=== PATIENT | male | born 1950 | race Caucasian/White ===

== ENCOUNTER → 2021-12-23 01:12 | Outpatient (CLI) | payer MEDICARE, SELFPAY ==
--- NOTE | 2021-12-23 10:00 | DI.CTLCSR_ITS ---
Exam(s) CT CHEST LUNG CANCER SCREEN EXAM: CT CHEST LUNG CANCER SCREEN CLINICAL HISTORY: NICOTINE DEPENDENCE, F17.210, LUNG CA SCREENING. TECHNIQUE: Imaging Protocol: Low Dose Technique CONTRAST MATERIAL: None COMPARISON: CR CHEST 2 VIEWS PA,LAT from 01/07/2013. There are no more recent chest imaging stud ies in our PACS. FINDINGS: CHEST: LUNGS: There are no ominous pulmonary nodules. Mild benign-appearing pleural base markings posterior aspect of right upper lobe are noted. Also benign-appearing increased markings lower down the medial aspect right lower lobe extending down into posterior basal segment. MEDIASTINUM: There is no obvious hilar nor mediastinal adenopathy. CARDIAC: Heart size is normal. There is no pericardial effusion.Moderate coronary calcification note d in the LAD and circumflex arteries. Caliber thoracic aorta is within normal OTHER: No adrenal masses no splenomegaly OSSEOUS: No significant osseous lesions.. IMPRESSION: 1. Benign appearing lung findings. No significant pulmonary nodules. 2. No pleural effusions nor intrathoracic adenopathy. 3. Lung RADS Cat 1 - Negative: No nodules and definitely benign nodules Lung-RADS 1.0 CATEGORIES: Category 0 - Prior chest CT exam(s) being located for comparison. Category 1 - Annual screening in 12 months. No nodules or definitely benign nodules. Category 2 - Annual screening in 12 months. Benign appearance. Nodules with low likelihood of becomin g active cancer. Category 3 - 6-month follow-up. Probably benign. Short-term follow-up suggested. Nodules with low lik elihood of becoming active cancer. Category 4A - 3-month follow-up and CT/PET if >8 mm in size. Suspicious finding. Findings which requi re additional testing. Category 4B - Findings which require additional testing and tissue sampling. Category 4X - Category 3 or 4 nodules with additional features or imaging findings that increases the suspicion of malignancy. Modifier S- Potentially clinically significant findings (non lung cancer) RADIATION DOSE DELIVERED: 96.59mGy.cm Total DLP 2.21mGy CTDIvol DATA REPOSITORY: All CT scans at this facility are submitted to the National Radiology Data Registry (NRDR) Dose Index Registry (DIR) with the [employer] (ACR). RADIATION OPTIMIZATION: All CT scans at this facility use at least one of these dose optimization te chniques: automated exposure control; mA and/or kV adjustment per patient size (includes targeted exa ms where dose is matched to clinical indication); or iterative reconstruction.
== END ==
PROVIDERS: PCP Nurse Practitioner; Visit Provider Nurse Practitioner
DX: F17.210 Nicotine dependence, cigarettes, uncomplicated (principal); Z12.2 Encounter for screening for malignant neoplasm of respiratory organs
CPT/HCPCS: 71271

== ENCOUNTER 2023-03-22 12:28 | Outpatient (CLI) | payer MEDICARE, SELFPAY ==
--- NOTE | 2023-03-22 12:28 | RT.EKG_ITS ---
APPROVED REPORT Exam: Resting ECG Reason for Exam: cardiac evaluation Patient Location: O HR:83 bpm ECG Measurements Heart Rate [address] [id number] P [id number] QRSd 85 QRS -13 QT 376 T 102 QTc 442 Conclusion Atrial fibrillation...V-rate 61- 97, irreg A-activity Poor R wave progression Low voltage
== END 2023-03-22 12:29 | disposition home or self-care (01) ==
LOC: DI.CARD 12:29
PROVIDERS: PCP Nurse Practitioner; Visit Provider Internal Medicine Cardiovascular Disease
DX: E78.5 Hyperlipidemia, unspecified (principal); I10 Essential (primary) hypertension; I48.91 Unspecified atrial fibrillation; I51.7 Cardiomegaly; Z13.6 Encounter for screening for cardiovascular disorders
CPT/HCPCS: 93010

== ENCOUNTER → 2023-03-22 12:55 | Outpatient (BNVA) | payer MEDICARE, SELFPAY | PROVIDERS: PCP Nurse Practitioner; Referring Provider Nurse Practitioner; Visit Provider Internal Medicine Cardiovascular Disease | DX: I48.91 Unspecified atrial fibrillation (principal); R06.02 Shortness of breath; Z91.148 Patient's other noncompliance with medication regimen for other reason; I12.9 Hypertensive chronic kidney disease with stage 1 through stage 4 chronic kidney disease, or unspecified chronic kidney disease; N18.9 Chronic kidney disease, unspecified | CPT/HCPCS: 93005; 99203 ==

== ENCOUNTER → 2023-05-18 01:41 | Outpatient (CLI) | payer MEDICARE, SELFPAY ==
--- NOTE | 2023-05-18 15:36 | DI.US_ITS ---
APPROVED REPORT EXAM: Comprehensive 2D, Doppler, and color-flow Echocardiogram Patient Location: Out-Patient Mechanical Test Engineer: Carole Torres RDCS (AE) Indications: LV function, A Fib, Pulmonary Embolism Other Information Study Quality: Adequate. Technically limited study due to body habitus. Conclusion Mildly dilated left ventricle. Moderately reduced left ventricular systolic function. EF is 35 to 4 0% with global hypokinesis Normal right ventricular size and systolic function Both atria are moderately dilated Aortic valve is sclerotic and trileaflet with trace regurgitation Normal mitral valve with mild to moderate regurgitation Normal tricuspid valve, mild regurgitation. Estimated right ventricular systolic pressure is 52 mmHg Small pericardial effusion Wall motion Left Ventricle Left ventricle is mildly dilated. Left ventricular systolic function is moderately decreased. There i s normal left ventricular wall thickness. There is global hypokinesis of the left ventricle. There is no ventricular septal defect visualized. LVEF is 35-40%. Right Ventricle The right ventricle is normal size. The right ventricular systolic function is normal. Atria Left atrium is moderately dilated. Right atrium is moderately dilated. The interatrial septum is int act with no evidence for an atrial septal defect. Aortic Valve The aortic valve is sclerotic Aortic valve is trileaflet. Aortic valve is trileaflet. There is no ao rtic valvular stenosis. Trace aortic regurgitation. Mitral Valve The mitral valve is normal in structure. No evidence of mitral valve stenosis. Mild to moderate genna l regurgitation. Tricuspid Valve The tricuspid valve is normal in structure. There is no tricuspid valve stenosis. Mild tricuspid regu rgitation. The RVSP is 52.0_ mmHg. Pulmonic Valve Pulmonic valve is not well visualized. There is no pulmonic valvular stenosis. There is no pulmonic v alvular regurgitation. Great Vessels The aortic root is normal in size. Ascending aorta is not well visualized. The IVC collapses <50% wit h inspiration. Pericardium Small circumferential pericardial effusion. 2D Dimensions IVSD d PLAX 0.91 cm M: 0.6-1.2 LVPW d PLAX 0.88 cm M: 0.6 - 1.2 LVID d PLAX 6.05 cm M: 4.2 - 5.8 LVDs 4.95 cm M: 2.5 - 4.0 Ao Root d 3.21 cm M: 3.1 - 3.7 RA Area A4C 23.02 cm2 LV EF Teichholz 37.0 % FS 18.15 % M-Mode TAPSE 1.83 cm (M/F) >1.7 LV Diastology MV E' medial 0.059 (>0.07 m/s) MV E Vmax 0.96 (0.4-1.3 m/s) LV E/e MED 16.23 (<14) MV E' lateral 0.077 (>0.1 m/s) LV E/e LAT 12.39 (<14) MV E/E' medial 16.23 MV E/E' lateral 12.39 MV (E/E' average) 14.05 Aortic Valve LVOT Vmax 0.96 m/s AoV Area Vmax 2.20 cm2 LVOT Peak Grad 3.7 mmHg LVOT Mean Grad 1.7 mmHg LVOT Diam s 2.10 cm AoV Vmax 1.52 m/s Velocity Ratio 0.63 AoV Peak Grad 9.2 mmHg LVOT SV 67.31 mL AoV Mean Grad 4.9 mmHg AoV Area VTI 2.20 cm2 Mitral Valve MV DT 171 (160-240 msec) MV Vmax TIPS 0.90 m/s MV Mean Grad 1.4 (<2mmHg) MV VTI 0.259 m Pulmonary Valve PV Mean Grad 1.2 mmHg RVOT Peak Gr. 1.92 mmHg RVOT Mean Gr. 1.00 mmHg RVOT VTI 0.132 m RVOT Vmax 0.69 m/s Tricuspid Valve TR Peak Grad 45.0 mmHg TR Vmax 3.36 m/s RA Pressure 8.00 mmHg RVSP (TR) 52.0 mmHg
== END ==
PROVIDERS: PCP Nurse Practitioner; Visit Provider Internal Medicine Cardiovascular Disease
DX: I26.99 Other pulmonary embolism without acute cor pulmonale (principal); I48.91 Unspecified atrial fibrillation
CPT/HCPCS: 93306

== ENCOUNTER → 2023-05-31 10:24 | Outpatient (BNVA) | payer MEDICARE, SELFPAY | PROVIDERS: PCP Nurse Practitioner; Referring Provider Nurse Practitioner; Visit Provider Internal Medicine Cardiovascular Disease | DX: I25.10 Atherosclerotic heart disease of native coronary artery without angina pectoris (principal); I48.91 Unspecified atrial fibrillation; Z79.01 Long term (current) use of anticoagulants; I11.0 Hypertensive heart disease with heart failure; I50.20 Unspecified systolic (congestive) heart failure | CPT/HCPCS: 99214 ==

== ENCOUNTER → 2023-06-09 02:09 | Outpatient (CLI) | payer MEDICARE, SELFPAY ==
--- NOTE | 2023-06-09 07:15 | DI.NM_ITS ---
APPROVED REPORT Exam: Pharmacologic Patient Location: Out-Patient Room/Bed: Stress Nurse: Magalys Roach RN Ordering Provider:ANILA OCAMPO, Contact Number: [phone] BMI: 36.01 Baseline Rhythm: Atrial Fibrillation Indications: CAD a fib, HTN, SOB Medical History Medical History: HFrEF, CAD, BPH, prediabetes, CKD, HLD, a fib, obesity, HTN, JOHN, cigarette nicotine dependence, DVT, PE, SOB Cardiac Medications: Sildenafil, rosuvastatin, pantoprazole, metoprolol succinate, losartan. levalbut alex, furosemide, doxazosin, diltiazem , aspirin, apixaban Allergies: Sulfa, bactrim, ZULLY inhibitors, Cardiac Risk Factors: Family hx, HTN, HLD, Diabetes, aspirin Previous Cardiac Procedures: None Pretest Chest Pain Characteristics: None Exercise History: Sedentary Physical Disabilities: Generalized weakness Lung Sounds: Clear to auscultation Heart Sounds: Irregular Stress Test Details Test: Pharmacologic stress testing performed using 0.4 mg of regadenoson per 5 mL given IV over 10 s econds. Reason for pharmacologic stress test: physical limitation. Nuclear Acquisition: Rest Tc-99m/Stress Tc-99m 1 day Rest Isotope: Tc-99m Sestamibi. Dose: 12.0 Date: 06/09/2023 Injection Time: 0840 Stress Isotope: Tc-99m Sestamibi. Dose: 35.1 Date: 06/09/2023 Injection Time: 1005 HR Resting HR Supine: 70 bpm Max Heart Rate (APMHR): 147.115559 bpm Target HR (85% APMHR): 124.479251 bpm Max HR Achieved: 95 bpm % of APMHR: 64.63 Recovery HR: 82 bpm BP Resting BP Supine: 112/62 mmHg Max BP: 118/62 mmHg Recovery BP: 104/68 mmHg ECG Resting ECG: Atrial Fibrillation Ectopy: None Stress ECG: Atrial Fibrillation ST Change: Nondiagnostic low heart rate Arrhythmia: None Recovery ECG: Atrial Fibrillation Recovery ST Change: Nondiagnostic low heart rate Recovery Arrhythmia: None Clinical Stress Symptoms: Moderate SOB Angina Score: None Rate Pressure Product: [id number] Stress ECG Conclusion 1. Resting electrocardiogram showed atrial fibrillation, poor R wave progression 2. Patient underwent testing using pharmacologic stress with regadenoson 3. Peak heart rate achieved was 65% of predicted for age 4. Electrocardiographic portion of the test was nondiagnostic 5. See MPI report Stress Test Summary STAGE HR BP SpO2 Symptoms NOTES Supine 70 112/62 1 min post Lexiscan injection 77 110/70 99 Mod SOB 3 min post Lexiscan injection 71 118/62 100 SOB resolving 6 min post Lexiscan injection 82 104/68 SOB resolved. MPI Conclusion Myocardial perfusion is normal. There is no evidence of ischemia or prior infarction Left ventricle appears dilated. There is severe global hypokinesis Radiologist Interpretation Radiologist agrees with Textile Screen Maker's Interpretation. Radiologist Interpretation by: Jose Boyd MD Interpretation Date/Time: 06/09/2023 18:40:25
[2023-06-09] MEDS: Regadenoson 0.4 MG/5 ML SYR IVP (10:29)
== END ==
PROVIDERS: PCP Nurse Practitioner; Visit Provider Internal Medicine Cardiovascular Disease
DX: I10 Essential (primary) hypertension (principal); I25.10 Atherosclerotic heart disease of native coronary artery without angina pectoris; I48.91 Unspecified atrial fibrillation; R06.02 Shortness of breath
CPT/HCPCS: 78452; 93016; 93018; 93017; J2785

== ENCOUNTER → 2023-06-14 10:12 | Outpatient (BNVA) | payer MEDICARE, SELFPAY | PROVIDERS: PCP Nurse Practitioner; Referring Provider Nurse Practitioner; Visit Provider Internal Medicine Cardiovascular Disease | DX: I50.20 Unspecified systolic (congestive) heart failure (principal); I25.10 Atherosclerotic heart disease of native coronary artery without angina pectoris; I48.91 Unspecified atrial fibrillation; Z79.01 Long term (current) use of anticoagulants; I13.0 Hypertensive heart and chronic kidney disease with heart failure and stage 1 through stage 4 chronic kidney disease, or unspecified chronic kidney disease; N18.9 Chronic kidney disease, unspecified | CPT/HCPCS: 99214 ==

== ENCOUNTER → 2023-06-28 10:12 | Outpatient (BNVA) | payer MEDICARE, SELFPAY | PROVIDERS: PCP Nurse Practitioner; Visit Provider Internal Medicine Cardiovascular Disease | DX: I50.20 Unspecified systolic (congestive) heart failure (principal); I25.10 Atherosclerotic heart disease of native coronary artery without angina pectoris; I48.91 Unspecified atrial fibrillation; Z79.01 Long term (current) use of anticoagulants; I13.0 Hypertensive heart and chronic kidney disease with heart failure and stage 1 through stage 4 chronic kidney disease, or unspecified chronic kidney disease; N18.9 Chronic kidney disease, unspecified | CPT/HCPCS: 99214 ==

== ENCOUNTER → 2023-08-30 10:27 | Outpatient (BNVA) | payer MEDICARE, SELFPAY | PROVIDERS: PCP Nurse Practitioner; Referring Provider Nurse Practitioner; Visit Provider Internal Medicine Cardiovascular Disease | DX: I48.0 Paroxysmal atrial fibrillation (principal); Z79.01 Long term (current) use of anticoagulants; I13.0 Hypertensive heart and chronic kidney disease with heart failure and stage 1 through stage 4 chronic kidney disease, or unspecified chronic kidney disease; N18.9 Chronic kidney disease, unspecified; I50.20 Unspecified systolic (congestive) heart failure; I25.10 Atherosclerotic heart disease of native coronary artery without angina pectoris | CPT/HCPCS: 99214 ==

== ENCOUNTER 2024-05-14 02:39 | Outpatient (CLI) | payer MEDICARE, SELFPAY ==
--- NOTE | 2024-05-14 | DI.CTLCSR_ITS ---
Exam(s) CT CHEST LUNG CANCER SCREEN EXAM: CT CHEST LUNG CANCER SCREEN CLINICAL HISTORY: CIGARETTE DEPENDENCE W/O COMPLICATION, F17.210 TECHNIQUE: Imaging Protocol: Axial computed tomography images with coronal and sagittal reformatted images were created and reviewed COMPARISON: CT CT CHEST LUNG CANCER SCREEN from 12/23/2021 FINDINGS: Tracheobronchial tree: Patent where visualized. No bronchiectasis. Pulmonary parenchyma: There is an infiltrate, atelectasis or scarring in the medial aspect of the rig ht lower lobe. No architectural distortion. Lung Nodules: None. Mediastinum and Sharon: No dominant adenopathy or fluid collection. The esophagus is unremarkable. Thyroid gland: Unremarkable. Lymph nodes: Unremarkable. Pleura: No effusion or pneumothorax. Heart: The heart is not dilated. Coronary artery calcifications are present. No pericardial effusion . Aorta: Thoracic aorta non-dilated.Atherosclerotic calcification is present. Upper abdomen: No acute abnormality. Soft Tissues: Mild gynecomastia. Bones: Within normal limits. IMPRESSION: 1. No pulmonary nodules. 2. Infiltrate, atelectasis or scarring in the medial aspect of the right lower lobe. Follow-up as cl inically appropriate. Lung RADS Cat 1 - Negative: No nodules and definitely benign nodules Lung-RADS 1.0 CATEGORIES: Category 0 - Prior chest CT exam(s) being located for comparison. Category 1 - Annual screening in 12 months. No nodules or definitely benign nodules. Category 2 - Annual screening in 12 months. Benign appearance. Nodules with low likelihood of becomin g active cancer. Category 3 - 6-month follow-up. Probably benign. Short-term follow-up suggested. Nodules with low lik elihood of becoming active cancer. Category 4A - 3-month follow-up and CT/PET if >8 mm in size. Suspicious finding. Findings which requi re additional testing. Category 4B - Findings which require additional testing and tissue sampling. Suspicious finding. Category 4X - Category 3 or 4 nodules with additional features or imaging findings that increases the suspicion of malignancy. Modifier S- Potentially clinically significant finding. (Non lung cancer) RADIATION DOSE DELIVERED: Total DLP Total DLP DATA REPOSITORY: All CT scans at this facility are submitted to the National Radiology Data Registry (NRDR) Dose Index Registry (DIR) with the [employer] (ACR). RADIATION OPTIMIZATION: All CT scans at this facility use at least one of these dose optimization te chniques: automated exposure control; mA and/or kV adjustment per patient size (includes targeted exa ms where dose is matched to clinical indication); or iterative reconstruction.
== END 2024-05-14 02:59 ==
LOC: DI 02:40
PROVIDERS: PCP Nurse Practitioner; Visit Provider Nurse Practitioner
DX: F17.210 Nicotine dependence, cigarettes, uncomplicated (principal)
CPT/HCPCS: 71271

== ENCOUNTER 2024-05-16 13:31 | Inpatient (IN) | payer MEDICARE, SELFPAY ==
[2024-05-16] VITALS (67 sets, daily range): BP systolic 84–145; BP diastolic 21–113; PULSE 56–145; RESP 15–39; TEMP 36.6–37.4; O2SAT 96–100
--- NOTE | 2024-05-16 13:30 | RT.EKG_ITS ---
APPROVED REPORT Exam: Resting ECG Reason for Exam: SOB + Chest pain Patient Location: E HR:135 bpm ECG Measurements Heart Rate 135 AXIS MO [id number] P [id number] QRSd 86 QRS 15 QT 305 T 76 QTc 458 Conclusion Atrial fibrillation RVR 135 no stemi
--- NOTE | 2024-05-16 14:00 | DI.RAD_ITS ---
Exam(s) XR PORTABLE CHEST AP EXAM: XR PORTABLE CHEST AP CLINICAL HISTORY: SOB. TECHNIQUE: 2D digital imaging was performed. COMPARISON: CT CT CHEST LUNG CANCER SCREEN from 05/14/2024 FINDINGS: Single AP portable view. Heart size is upper normal. The mediastinum is not widened. Lungs are clear. No infiltrates nor obvious pleural effusions. IMPRESSION: No acute pulmonary findings on this single AP portable view of the chest. However, please note that chest CT scan of 05/14/2024 revealed an area of significant infiltrate in t he medial basal segment of the right lower lobe. This is not able to be visualized on a single AP po rtable view. Recommend nonportable PA and lateral views when clinically possible. DATA REPOSITORY: RADIATION DOSE DELIVERED:
[2024-05-16] MEDS: dilTIAZem 25 MG/5 ML VIAL 20 MG IVP (14:26)
[2024-05-16 14:31] LABS: Abs Immature Grans 0.02 10^3/uL (0.0-0.06); Absolute Basophil Count 0.03 10^3/uL (0.0-0.2); Absolute Eosinophil Count 0.12 10^3/uL (0.0-0.7); Absolute Lymphocyte Count 1.92 10^3/uL (1.2-3.4); Absolute Monocyte Count 0.62 10^3/uL (0.1-0.8); Absolute Neutrophil Count 4.82 10^3/uL (1.2-6.7); Basophils % 0.4 %; Eosinophils % 1.6 %; HCT 26.6 % (40.0-50.0); Immature Grans % 0.3 %; Lymphocytes % 25.5 %; MCH 19.6 pg (27.0-33.0); MCHC 26.3 % (32.0-36.0); MCV 74 fL (80-95); MPV 10.2 fL (8.0-11.0); Monocytes % 8.2 %; Nucleated RBC 0.4 % (0.0-0.3); Platelet Count 302 10^3/uL (130-400); RBC 3.58 10^6/uL (4.36-5.78); RDW 18.5 % (11.8-14.1); RDW-SD 49.8 fL; WBC 7.53 10^3/uL (4.4-10.8)
[2024-05-16] MEDS: Aspirin 325 MG TAB PO (14:39)
[2024-05-16 14:52] LABS: ALT 13 U/L (16-63); AST 11 U/L (15-37); Albumin 3.3 g/dL (3.4-5.0); Alkaline Phosphatase 50 U/L (46-116); Anion Gap 10.6 mmol/L (3-11); BUN 22 mg/dL (7-18); Bilirubin, Total 0.29 mg/dL (0.2-1.0); CO2 22.4 mmol/L (21.0-32.0); CREATININE 1.6 mg/dL (0.70-1.30); Calcium 8.8 mg/dL (8.5-10.1); Chloride 108 mmol/L (98-107); Estimated GFR 44.93 (mL/min/1.73m2); Glucose 154 mg/dL (74-106); Magnesium 2.1 mg/dL (1.8-2.4); NT-proBNP 4297 pg/mL (<300); Potassium 4.4 mmol/L (3.5-5.1); Sodium 141 mmol/L (136-145); Total Protein 6.9 g/dL (6.4-8.2)
[2024-05-16 14:54] LABS: Anisocytosis 1+; Diff Comment RBC Morph Reviewed; Microcytosis 1+; Polychromasia Present
[2024-05-16 14:55] LABS: Poikilocytes 1+
[2024-05-16 14:59] LABS: INR 1.1 (0.9-1.1); PTT Activated 26.5 sec (23.6-32.8); Prothrombin Time 10.8 sec (9.1-11.1)
--- NOTE | 2024-05-16 15:17 | W.ED.GENAD ---
Discharge Plan Disposition Patient Disposition: Admit to [facility] Condition: Fair Discharge Details Chief Complaint: SOB Clinical Impression: Anemia, Heart failure with reduced ejection fraction, Atrial fibrillation with rapid ventricular response Primary Care Provider: Hamida Ng ED Provider: Lori Hunter Home Meds and New Rx's Prescriptions: No Action furosemide 40 mg tablet 40 mg PO DAILY Qty: 90 3RF ibuprofen [Advil] 200 mg tablet 200 mg PO Q6H PRN sildenafil [Viagra] 100 mg tablet 100 mg PO DAILY PRN Rx Instructions: administer 30 minutes to 4 hours before activity azelastine-fluticasone 137-50 mcg/spray spray,non-aerosol 1 spray intranasal ONCE Rx Instructions: administer into each nostril levalbuterol tartrate [Xopenex HFA] 45 mcg/actuation HFA aerosol inhaler 2 inh inhalation Q4H PRN Eliquis 5 mg tablet 5 mg PO BID Qty: 180 3RF losartan 25 mg tablet 50 mg PO DAILY Jardiance 10 mg tablet 10 mg PO DAILY fluticasone propionate 50 mcg/actuation spray,suspension 2 spray intranasal DAILY Rx Instructions: administer into each nostril metoprolol succinate 200 MG tablet extended release 24 hr 200 mg PO DAILY acetaminophen [Tylenol Ex Str Arthritis Pain] 500 MG tablet 1,300 mg PO BID triamcinolone acetonide 5 GM paste 5 g Dental DAILY PRN pantoprazole [Protonix] 40 MG tablet,delayed release (DR/EC) 40 mg PO DAILY rosuvastatin [Crestor] 5 MG tablet 5 mg PO DAILY losartan [Cozaar] 25 mg tablet 25 mg PO DAILY metoprolol succinate [Toprol XL] 200 mg tablet extended release 24 hr 200 mg PO DAILY aspirin [Adult Low Dose Aspirin] 81 mg tablet,delayed release (DR/EC) 81 mg PO DAILY HPI General Date/Time Provider Initiated Documentation: 05/16/24 13:32. Limitations to Documentation: no limitations. Information obtained by: patient. HPI Narrative: 73-year-old gentleman with past medical history of CKD, CAD, CHF, hypertension presents for evaluation of shortness of breath. Patient reports that he has been feeling well for the last couple of weeks and went to his PCP. He was tested for COVID and flu and this was negative. He reports that over the last 4 days his symptoms have significantly worsened. He is sleeping upright on pillows, not having chest pain but having some palpitations. Shortness of breath is constant, worse with exertion. Related Data Home Medications ?Medication ?Instructions ?Recorded ?Confirmed acetaminophen 500 mg tablet 1,300 mg PO BID 01/07/13 05/16/24 (Tylenol Ex Str Arthritis Pain) metoprolol succinate 200 mg 200 mg PO DAILY 01/07/13 05/16/24 tablet,extended release 24 hr pantoprazole 40 mg tablet,delayed 40 mg PO DAILY 01/07/13 05/16/24 release (Protonix) rosuvastatin 5 mg tablet (Crestor) 5 mg PO DAILY 01/07/13 05/16/24 triamcinolone acetonide 0.1 % 5 g dental DAILY PRN 01/07/13 05/16/24 dental paste levalbuterol tartrate 45 2 inh inhalation Q4H PRN 02/21/23 05/16/24 mcg/actuation aerosol inhaler (Xopenex HFA) azelastine 137 mcg-fluticasone 50 1 spray intranasal ONCE 03/22/23 05/16/24 mcg/spray nasal spray ibuprofen 200 mg tablet (Advil) 200 mg PO Q6H PRN 03/22/23 05/16/24 sildenafil 100 mg tablet (Viagra) 100 mg PO DAILY PRN 03/22/23 05/16/24 furosemide 40 mg tablet 40 mg PO DAILY #90 tabs 05/31/23 05/16/24 apixaban 5 mg tablet (Eliquis) 5 mg PO BID #180 tabs 03/29/24 05/16/24 empagliflozin 10 mg tablet 10 mg PO DAILY 04/26/24 05/16/24 (Jardiance) fluticasone propionate 50 2 spray intranasal DAILY 04/26/24 05/16/24 mcg/actuation nasal spray,suspension losartan 25 mg tablet 50 mg PO DAILY 04/26/24 aspirin 81 mg tablet,delayed 81 mg PO DAILY 05/16/24 05/16/24 release (Adult Low Dose Aspirin) losartan 25 mg tablet (Cozaar) 25 mg PO DAILY 05/16/24 05/16/24 metoprolol succinate 200 mg 200 mg PO DAILY 05/16/24 05/16/24 tablet,extended release 24 hr (Toprol XL) Previous Rx's ?Medication ?Instructions ?Recorded furosemide 40 mg tablet 40 mg PO DAILY #90 tabs 05/31/23 apixaban 5 mg tablet (Eliquis) 5 mg PO BID #180 tabs 03/29/24 Allergies Allergy/AdvReac Type Severity Reaction Status Date / Time Sulfa (Sulfonamide Allergy Severe anaphylaxis Verified 05/16/24 13:38 Antibiotics) sulfamethoxazole (From Allergy Severe Anaphylaxis Verified 05/16/24 13:38 Bactrim) trimethoprim (From Bactrim) Allergy Severe Anaphylaxis Verified 05/16/24 13:38 ZULLY Inhibitors AdvReac Intermediate Other (See Verified 05/16/24 13:38 Comment) General Stated Complaint: SOB HUGO: 2 Exam Narrative Exam Narrative: Review of Systems: All systems reviewed & are unremarkable except as noted in HPI and below Well-developed, ill-appearing NCAT PERRL, normal conjunctiva irregularly irregular, tachycardic Unlabored respiratory effort, no increased work of breathing, no hypoxia Nondistended abdomen soft nontender Extremities w/o deformity, no cyanosis, no edema No rashes or lesions. no focal neurologic deficits Appropriate mood and affect Course Vital Signs Vital signs: Vital Signs Temperature 36.6 C 05/16/24 13:33 Pulse 64 05/16/24 13:33 Respiratory Rate 16 05/16/24 13:33 Blood Pressure 127/87 05/16/24 13:33 Pulse Oximetry 100 05/16/24 13:33 Temperature 36.7 C 05/16/24 14:11 Pulse 68 05/16/24 14:33 Pulse 88 05/16/24 14:40 Respiratory Rate 16 05/16/24 14:40 Respiratory Effort Short of Breath 05/16/24 14:32 Respiratory Depth Normal 05/16/24 14:32 Respiratory Pattern Normal 05/16/24 14:32 Blood Pressure 113/57 L 05/16/24 14:33 Blood Pressure Mean 69 05/16/24 14:33 Pulse Oximetry 97 05/16/24 14:40 Oxygen Delivery Method Room Air 05/16/24 13:33 Oxygen Flow Rate 0 05/16/24 13:33 Pain Level 1 05/16/24 14:32 Lab/Test Results Lab/Test Results: Laboratory Tests Range/Units 05/16/24 14:17 WBC (4.4-10.8) 10^3/uL 7.53 RBC (4.36-5.78) 10^6/uL 3.58 L Hgb (13.5-17.5) g/dL 7.0 L* Hct (40.0-50.0) % 26.6 L MCV (80-95) fL 74 L MCH (27.0-33.0) pg 19.6 L MCHC (32.0-36.0) % 26.3 L RDW (11.8-14.1) % 18.5 H Plt Count (130-400) 10^3/uL 302 MPV (8.0-11.0) fL 10.2 Immature Gran % % 0.3 Neutrophils % % 64.0 Lymphocytes % % 25.5 Monocytes % % 8.2 Eosinophils % % 1.6 Basophils % % 0.4 Nucleated RBC % (0.0-0.3) % 0.4 H Absolute Neutrophils (1.2-6.7) 10^3/uL 4.82 Absolute Lymphocytes (1.2-3.4) 10^3/uL 1.92 Absolute Monocytes (0.1-0.8) 10^3/uL 0.62 Absolute Eosinophils (0.0-0.7) 10^3/uL 0.12 Absolute Basophils (0.0-0.2) 10^3/uL 0.03 RBC Morphology See Below Polychromasia Present Poikilocytosis 1+ Anisocytosis 1+ Microcytosis 1+ PT (9.1-11.1) sec 10.8 INR (0.9-1.1) 1.1 APTT (23.6-32.8) sec 26.5 Sodium (136-145) mmol/L 141 Potassium (3.5-5.1) mmol/L 4.4 Chloride (98-107) mmol/L 108 H Carbon Dioxide (21.0-32.0) mmol/L 22.4 Anion Gap (3-11) mmol/L 10.6 BUN (7-18) mg/dL 22 H Creatinine (0.70-1.30) mg/dL 1.6 H Est GFR (CKD-EPI 2020) (mL/min/1.73m2) 44.93 Glucose (74-106) mg/dL 154 H Calcium (8.5-10.1) mg/dL 8.8 Magnesium (1.8-2.4) mg/dL 2.1 Total Bilirubin (0.2-1.0) mg/dL 0.29 AST (15-37) U/L 11 L ALT (16-63) U/L 13 L Alkaline Phosphatase (46-116) U/L 50 NT-Pro-B Natriuret Pep (<300) pg/mL 4297 H Total Protein (6.4-8.2) g/dL 6.9 Albumin (3.4-5.0) g/dL 3.3 L Medical Decision Making Emergent evaluation of shortness of breath. Patient has significant cardiopulmonary risk factors. The patient presented with A-fib RVR. Does have history of atrial fibrillation but had cardioversion last year. He is on Eliquis for prior pulmonary embolism. Rate control achieved with IV push of diltiazem. The patient did get a chest x-ray. The x-ray does not show any acute process or pleural effusion. However he did recently have a screening chest CT and there is concern for possible consolidation or infiltrate in the right lower lobe which is not visualized on the chest x-ray as well as an for lateral imaging. No one has addressed the findings noted on the chest CT as it was a screening for lung cancer but I am concerned for possible pneumonia. The lab work was reviewed. No elevation white blood cell count. Hemoglobin is 7 which is a new concern for the patient. I discussed with him and he does not have any signs of ongoing bleeding, melena or bright red blood. I reviewed his record at [facility] and his hemoglobin 8 months ago was 12 and 41. His creatinine is 1.6, baseline for the patient is around 1.4. BNP is very elevated today. 3 months ago he was at 815, today he is noted to be elevated at 4297 we will give IV dose of Lasix. LAst Echo in [facility] system 2022 with EF 35% . Patient has been consented for blood transfusion and will initiate this. Discussed with hospitalist and will admit for further management. Medical Records Medical records reviewed: Yes I reviewed the patient's medical records. Lab Data Lab results reviewed: Yes I reviewed the patient's lab results. Quality:SDPR Health Related Social Needs: No Data to Display Critical Care Time Critical Care Time Critical Care Time: Yes Total Critical Care Time: 34 Attestation: CRITICAL CARE Upon my evaluation, this patient had a high probability of imminent or life-threatening deterioration due to anemia, CHF, cardiac dysrhythmia which required my direct attention, intervention, and personal management. I have personally provided 34 minutes of critical care time exclusive of time spent on separately billable procedures. Time includes review of laboratory data, radiology results, discussion with consultants, and monitoring for potential decompensation. Interventions were performed as documented above PFSH All Active Problems Atrial fibrillation with rapid ventricular response (Acute) Anemia (Chronic) Heart failure with reduced ejection fraction (Acute) Coronary artery disease (Chronic) BPH (benign prostatic hyperplasia) (Chronic) Prediabetes (Acute) CKD (chronic kidney disease) (Chronic) HLD (hyperlipidemia) (Acute) LVH (left ventricular hypertrophy) (Acute) Afib (Chronic) 08/30/23 cardioversion at [facility] [place] 08/24/23 successful to NSR RH Osteoarthritis (Chronic) Erectile dysfunction (Acute) Obesity (BMI 30-39.9) (Acute) HTN (hypertension) with goal to be determined (Acute) GERD (gastroesophageal reflux disease) (Chronic) Chronic pansinusitis (Acute) JOHN (obstructive sleep apnea) (Chronic) Cigarette nicotine dependence (Acute) Medical History Pulmonary embolism 02/16/23 RH SOB (shortness of breath) History of DVT (deep vein thrombosis) Family History Mother Cancer Son Heart disease cardiomyopathy, heart transplant Brother Heart disease CAD, Cabg Social History Smoking/Tobacco Use Status: Former Tobacco Use Quit Date: 01/01/23 Smoking risk assessment performed?: Yes Alcohol Intake: current Alcohol Intake frequency: 0-2 drinks per day Alcohol type: beer Drug use: Never Substance use type: does not use PAWSS Have you Been Recently Intoxicated or Drunk Within the Last 30 days?: No Have you Ever Experienced Previous Episodes of Alcohol Withdrawal?: No Have you ever Experienced Withdrawal Seizures?: No Have you ever Experienced Delirium Tremens(DT)s?: No Have you ever undergone Alcohol Rehabilitation Treatment (i.e, inpt ot outpatient treatment programs)?: No Have you ever Experienced Blackouts?: No Have you ever Combined Alcohol with other Downers within the last 90 days?: No Have you ever Combined Alcohol with any other Substance of Abuse during the last 90 days?: No Positive Blood Alcohol level on Presentation? [PCS.BAL]: No Evidence of Increased Autonomic Activity (i.e. HR>120, tremor, sweating, agitation, nausea)?: No Result: 0
--- NOTE | 2024-05-16 15:31 | DI.RAD_ITS ---
Exam(s) XR CHEST 1V IN DI DEPT EXAM: XR CHEST 1V IN DI DEPT CLINICAL HISTORY: lateral chest xr please. TECHNIQUE: 2D digital imaging was performed. COMPARISON: CT CT CHEST LUNG CANCER SCREEN from 05/14/2024 CR XR PORTABLE CHEST AP from 05/16/2024 FINDINGS: Single lateral view. Heart size is upper normal. The mediastinum is not widened. No infiltrates nor obvious pleural effusions evident on this lateral view. No fractures. IMPRESSION: No significant focal findings in the single lateral view. Subtle nodular infiltrate was evident in the medial basal segment of the right lower lobe seen on rec ent CT scan performed 2 days ago. This is probably too subtle to be seen on plain films. Correlatio n with clinical findings recommended and if clinically indicated repeat CT scan can be performed to b e compared to the lung cancer screening CT scan which was performed on 05/14/2024. DATA REPOSITORY: RADIATION DOSE DELIVERED:
[2024-05-16 15:38] LABS: Reticulocyte 1.6 % (0.5-2.4)
[2024-05-16] MEDS: Furosemide 100 MG/10 ML VIAL 80 MG IVP (15:42)
[2024-05-16 16:06] LABS: Troponin I < 50 ng/L (< or =60)
[2024-05-16 17:02] LABS: Iron 11 ug/dL (65-175); Total Iron Binding Capacity 424 ug/dL (250-450); Transferrin Sat 3 % (20-55)
[2024-05-16 17:16] LABS: Ferritin 4 ng/mL (26-388)
--- NOTE | 2024-05-16 17:57 | HPE_ITS ---
Date of service: 05/16/24 Time of Service: 17:57 Assessment and Plan Assessment and plan (1) Anemia: Status: Chronic Assessment and plan: Unclear acuity, but this is likely what is tipping him into symptomatic heart failure. Assume blood loss, but no known bleeding. He will need EGD colo with acuity depending if he has ongoing blood loss. I agree with 1 unit now at 7.0 hgb given symptoms, possible acute loss, and heart disease. Holding apixaban and ASA (he got 325 on presentation) but will resume if not getting ongoing blood loss given high risk. Qualifiers: Anemia type: unspecified type Qualified Code(s): D64.9 - Anemia, unspecified (2) Atrial fibrillation with rapid ventricular response: Status: Acute Assessment and plan: Likely triggered by acute anemia, so I expect rate to improve after transfusion. He is on metoprolol for rate control He did get diltiazem which brought his rate down initially, but with HFrEF I would like to avoid this. Will use prn metoprolol pushes for rates >120. A little tachycardia ok with acute anemia. (3) Heart failure with reduced ejection fraction: Status: Acute Assessment and plan: Triggered by anemia. He was not overtly fluid overloaded on presentation in ED. He did get IV furosemide prior to tranfusion, which I agree with. Will continue to monitor fluid status. He is due for updated echocardiogram which is ordered in the AM. Continue outpatient therapy (4) Cigarette nicotine dependence: Status: Acute Assessment and plan: encouarged cessation. Qualifiers: Substance use status: uncomplicated Qualified Code(s): F17.210 - Nicotine dependence, cigarettes, uncomplicated (5) Coronary artery disease: Status: Chronic Assessment and plan: On ASA and statin, not high intensity based on difficulty tolerating. Continue statin, holding further ASA for now as we watch for blood loss. Qualifiers: Associated angina: without angina Coronary Disease-Associated Artery/Lesion type: ho-chunk artery [place] vs. transplanted heart: ho-chunk heart Qualified Code(s): I25.10 - Atherosclerotic heart disease of [place] coronary artery without angina pectoris (6) CKD (chronic kidney disease): Status: Chronic Assessment and plan: Near baseline. Continue to monitor. Qualifiers: Chronic kidney disease stage: unspecified stage Qualified Code(s): N 18.9 - Chronic kidney disease, unspecified (7) Lung infiltrate on CT: Status: Acute Assessment and plan: seen on recent LDCT screen, but not on CXR. He does not have pneumonia clinically, no abx for now. (8) DVT prophylaxis: Status: Acute Assessment and plan: Holding apixaban as above, resume as soon as safe History of Present Illness History of Present Illness Chief Complaint: dyspnea on exertion Narrative: 73 yo M smoker with history of CAD, HFrEF, atrial fibrillation and remote PE on apixaban, CKD 3, and JOHN who presented to the emergency room today at the suggestion of his PCP with progressive dyspnea on exertion. He first started feeling sick with URI 2-3 weeks ago. He was seen at his primary care and had negative flu/covid. He had a cough and mild runny nose, and the cough was hanging out but was getting better. He would occaisionally feel short of breath after coughing fits mostly at night. He took robatussin DM and acetaminophen but no NSAIDs or steroids. He does use levalbterol with some effect. Over the past 3-4 days, even more since yesterday, he has had dyspnea with minor exertion. 3 days ago he was exhausted after going to the store, which is not typical. Today he was exhausted and SOB just walking in his home. He has not had any changes to stool including blood or melena. No other bleeding. He was scheduled for a routine colonoscopy next week but had to cancel. He just had his screening CT for lung cancer which showed a subtle infiltrate. He has not had fever or increased sputum production. His cough has actually improved in the past few weeks. Review of Systems All systems reviewed & are unremarkable except as noted in HPI and below PFSH All Active Problems DVT prophylaxis (Acute) Lung infiltrate on CT (Acute) Atrial fibrillation with rapid ventricular response (Acute) Anemia (Chronic) Heart failure with reduced ejection fraction (Acute) Coronary artery disease (Chronic) BPH (benign prostatic hyperplasia) (Chronic) Prediabetes (Acute) CKD (chronic kidney disease) (Chronic) HLD (hyperlipidemia) (Acute) LVH (left ventricular hypertrophy) (Acute) Afib (Chronic) 08/30/23 cardioversion at [facility] [place] 08/24/23 successful to NSR RH Osteoarthritis (Chronic) Erectile dysfunction (Acute) Obesity (BMI 30-39.9) (Acute) HTN (hypertension) with goal to be determined (Acute) GERD (gastroesophageal reflux disease) (Chronic) Chronic pansinusitis (Acute) JOHN (obstructive sleep apnea) (Chronic) Cigarette nicotine dependence (Acute) Medical History Pulmonary embolism 02/16/23 RH SOB (shortness of breath) History of DVT (deep vein thrombosis) Family History Mother Cancer Son Heart disease cardiomyopathy, heart transplant Brother Heart disease CAD, Cabg Social History (Updated 05/16/24 @ 18:07 by Jose Tobin) Smoking/Tobacco Use Status: Current every day Tobacco Type: cigarettes Smoking packs per day: 0.25 Smoking cigarettes per day: 5.0 Smoking risk assessment performed?: Yes Alcohol Intake: current Alcohol Intake frequency: 0-2 drinks per day Alcohol type: beer Drug use: Never Substance use type: does not use Additional Social history: Retired elementary science teacher, 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 Meds Allergies and Home Medications Allergies Allergy/AdvReac Type Severity Reaction Status Date / Time Sulfa (Sulfonamide Allergy Severe anaphylaxis Verified 05/16/24 13:38 Antibiotics) sulfamethoxazole (From Allergy Severe Anaphylaxis Verified 05/16/24 13:38 Bactrim) trimethoprim (From Bactrim) Allergy Severe Anaphylaxis Verified 05/16/24 13:38 ZULLY Inhibitors AdvReac Intermediate Other (See Verified 05/16/24 13:38 Comment) Home Medications ?Medication ?Instructions ?Recorded ?Confirmed ?Type acetaminophen 500 mg tablet 1,300 mg PO BID 01/07/13 05/16/24 History (Tylenol Ex Str Arthritis Pain) metoprolol succinate 200 mg 200 mg PO DAILY 01/07/13 05/16/24 History tablet,extended release 24 hr pantoprazole 40 mg tablet,delayed 40 mg PO DAILY 01/07/13 05/16/24 History release (Protonix) rosuvastatin 5 mg tablet (Crestor) 5 mg PO DAILY 01/07/13 05/16/24 History triamcinolone acetonide 0.1 % 5 g dental DAILY PRN 01/07/13 05/16/24 History dental paste levalbuterol tartrate 45 2 inh inhalation Q4H PRN 02/21/23 05/16/24 History mcg/actuation aerosol inhaler (Xopenex HFA) azelastine 137 mcg-fluticasone 50 1 spray intranasal ONCE 03/22/23 05/16/24 History mcg/spray nasal spray ibuprofen 200 mg tablet (Advil) 200 mg PO Q6H PRN 03/22/23 05/16/24 History sildenafil 100 mg tablet (Viagra) 100 mg PO DAILY PRN 03/22/23 05/16/24 History furosemide 40 mg tablet 40 mg PO DAILY #90 tabs 05/31/23 05/16/24 Rx apixaban 5 mg tablet (Eliquis) 5 mg PO BID #180 tabs 03/29/24 05/16/24 Rx empagliflozin 10 mg tablet 10 mg PO DAILY 04/26/24 05/16/24 History (Jardiance) fluticasone propionate 50 2 spray intranasal DAILY 04/26/24 05/16/24 History mcg/actuation nasal spray,suspension aspirin 81 mg tablet,delayed 81 mg PO DAILY 05/16/24 05/16/24 History release (Adult Low Dose Aspirin) losartan 25 mg tablet (Cozaar) 25 mg PO DAILY 05/16/24 05/16/24 History Exam Narrative Exam Narrative: GEN: Alert and oriented x 4, pleasant and cooperative, gives linear history. No acute distress at rest. HEENT: Head atraumatic. Conjunctiva clear, no icterus. PEERL, EOMI. no rhinorrhea. MMM, OP benign. Neck is supple with no masses or lymphadenopathy, trachea midline LUNGS: CTAB with normal effort CV: RRR with no murmurs, gallops, or rubs. ABD: active bowel sounds, soft, nontender and nondistended. No masses. EXT: no cyanosis, clubbing. Trace yesenia LE edema to shins. Legs not tender MSK: No joint redness or swelling NEURO: CN 2-12 grossly intact. Normal movement of 4 extremities. Normal speech and coordination. No tremor SKIN: No rashes or open wounds. PSYCH: normal mood and affect Results Imaging Chest x-ray: report reviewed ( No significant focal findings in the single lateral view. Subtle nodular infiltrate was evident in the medial basal segment of the right lower lobe seen on recent CT scan performed 2 days ago. This is probably too subtle to be seen on plain films. Correlation with clinical findings recommended ) and image reviewed EKG: report reviewed (afib with RVR 135, no ischemic changes) and image reviewed Labs 05/16/24 14:17 05/16/24 14:17 Labs: Laboratory Results - last 24 hr 05/16/24 05/16/24 14:17 15:08 WBC 7.53 RBC 3.58 L Hgb 7.0 L* Hct 26.6 L MCV 74 L MCH 19.6 L MCHC 26.3 L RDW 18.5 H Plt Count 302 MPV 10.2 Reticulocyte % (Auto) 1.6 Immature Gran % 0.3 Neutrophils % 64.0 Lymphocytes % 25.5 Monocytes % 8.2 Eosinophils % 1.6 Basophils % 0.4 Nucleated RBC % 0.4 H Absolute Neutrophils 4.82 Absolute Lymphocytes 1.92 Absolute Monocytes 0.62 Absolute Eosinophils 0.12 Absolute Basophils 0.03 RBC Morphology See Below Polychromasia Present Poikilocytosis 1+ Anisocytosis 1+ Microcytosis 1+ PT 10.8 INR 1.1 APTT 26.5 Sodium 141 Potassium 4.4 Chloride 108 H Carbon Dioxide 22.4 Anion Gap 10.6 BUN 22 H Creatinine 1.6 H Est GFR (CKD-EPI 2020) 44.93 Glucose 154 H Calcium 8.8 Magnesium 2.1 Iron 11 L TIBC 424 Transferrin % Sat 3 L Ferritin 4 L Total Bilirubin 0.29 AST 11 L ALT 13 L Alkaline Phosphatase 50 Troponin I < 50 NT-Pro-B Natriuret Pep 4297 H Total Protein 6.9 Albumin 3.3 L ABO/Rh O Positive Blood Type Recheck O Positive Antibody Screen NEGATIVE Crossmatch See Detail Last Vital Signs Temp 36.9 C 05/16/24 17:40 Pulse 114 H 05/16/24 17:40 Resp 18 05/16/24 17:40 BP 127/71 05/16/24 17:40 Pulse Ox 98 05/16/24 17:40 PAWSS Have you Been Recently Intoxicated or Drunk Within the Last 30 days?: No Have you Ever Experienced Previous Episodes of Alcohol Withdrawal?: No Have you ever Experienced Withdrawal Seizures?: No Have you ever Experienced Delirium Tremens(DT)s?: No Have you ever undergone Alcohol Rehabilitation Treatment (i.e, inpt ot outpatient treatment programs)?: No Have you ever Experienced Blackouts?: No Have you ever Combined Alcohol with other Downers within the last 90 days?: No Have you ever Combined Alcohol with any other Substance of Abuse during the last 90 days?: No Positive Blood Alcohol level on Presentation? [PCS.BAL]: No Evidence of Increased Autonomic Activity (i.e. HR>120, tremor, sweating, agitation, nausea)?: No Result: 0 Time Spent Time spent with Patient: >75 minutes Time was spent: preparing to see the patient(eg.review tests), obtaining and/or reviewing separately otained hiistory, ordering medications,tests, procedures, referring, communicating with other health women's health care nurse practitioner, indepentently interpreting results, counseling the patient and care coordination
[2024-05-16] MEDS: Normal Saline Flush 10 ML SYR IVP ×2 (20:40)
[2024-05-16 21:19] LABS: HCT 28.8 % (40.0-50.0); HGB 7.9 g/dL (13.5-17.5)
[2024-05-17] VITALS (22 sets, daily range): BP systolic 108–136; BP diastolic 54–75; PULSE 62–89; RESP 17–28; TEMP 36.7–37.2; O2SAT 96–100
[2024-05-17] MEDS: Benzonatate 100 MG CAP PO ×4 (00:08→19:53)
[2024-05-17] MEDS: Acetaminophen 500 MG TAB 1000 MG PO ×2 (00:08→19:52)
[2024-05-17 06:44] LABS: Abs Immature Grans 0.02 10^3/uL (0.0-0.06); Absolute Basophil Count 0.05 10^3/uL (0.0-0.2); Absolute Eosinophil Count 0.18 10^3/uL (0.0-0.7); Absolute Lymphocyte Count 2.43 10^3/uL (1.2-3.4); Absolute Monocyte Count 0.76 10^3/uL (0.1-0.8); Absolute Neutrophil Count 4.82 10^3/uL (1.2-6.7); Basophils % 0.6 %; Eosinophils % 2.2 %; HCT 30.2 % (40.0-50.0); HGB 8.6 g/dL (13.5-17.5); Immature Grans % 0.2 %; Lymphocytes % 29.4 %; MCH 21.5 pg (27.0-33.0); MCHC 28.5 % (32.0-36.0); MCV 76 fL (80-95); MPV 10.9 fL (8.0-11.0); Monocytes % 9.2 %; Neutrophils % 58.4 %; Platelet Count 261 10^3/uL (130-400); RDW 19.3 % (11.8-14.1); WBC 8.26 10^3/uL (4.4-10.8)
[2024-05-17 07:19] LABS: Anion Gap 10.1 mmol/L (3-11); BUN 26 mg/dL (7-18); CO2 24.9 mmol/L (21.0-32.0); CREATININE 1.7 mg/dL (0.70-1.30); Chloride 107 mmol/L (98-107); Estimated GFR 41.78 (mL/min/1.73m2); Glucose 120 mg/dL (74-106); Potassium 4.3 mmol/L (3.5-5.1); Sodium 142 mmol/L (136-145)
--- NOTE | 2024-05-17 08:02 | DI.US_ITS ---
APPROVED REPORT EXAM: Comprehensive 2D, Doppler, and color-flow Echocardiogram Patient Location: In-Patient Room/Bed: [id number] Big Data Software Engineer: Carole Torres RDCS (AE) Indications: HFrEF, CAD, A Fib,Smoker Other Information Study Quality: Fair. Technically limited study due to body habitus, exam done bedside ICU. Conclusion Normal left ventricular wall thickness and chamber size. EF biplane is 48%. Visually appears 50 to 55%. No segmental wall motion abnormalities are identified Right ventricle and right atrium are not well-visualized Left atrium is mildly enlarged Aortic valve is sclerotic without hemodynamically significant aortic stenosis, no aortic regurgitatio n Normal mitral valve with trace to mild regurgitation Estimated right ventricular systolic pressure is 35 mmHg Wall motion Left Ventricle The left ventricle is normal size. Left ventricular systolic function is borderline. Beat to beat jarret iation throughout exam. There is normal left ventricular wall thickness. No segmental wall motion abn ormalities There is no ventricular septal defect visualized. LVEF is 48%. Right Ventricle Right ventricle is not well visualized. Right ventricular systolic function could not be assessed. Atria Left atrium is mildly dilated. Right atrium is not well visualized. The interatrial septum is intact with no evidence for an atrial septal defect. Aortic Valve The Aortic valve is sclerotic. There is no aortic valvular stenosis. No aortic regurgitation is prese nt. Mitral Valve The mitral valve is normal in structure. No evidence of mitral valve stenosis. Trace to mild mitral r egurgitation. Tricuspid Valve The tricuspid valve is normal in structure. There is no tricuspid valve stenosis. Trace tricuspid reg urgitation. The RVSP is 34.6 mmHg. Pulmonic Valve Pulmonic valve is not well visualized. There is no pulmonic valvular stenosis. There is no pulmonic v alvular regurgitation. Great Vessels The aortic root is normal in size. Ascending aorta is not well visualized. Aortic arch is not well vi sualized. IVC is normal in size and collapses >50% with inspiration. Pericardium There is no pericardial effusion. 2D Dimensions IVSD d PLAX 1.00 cm M: 0.6-1.2 Ao Root d 3.21 cm M: 3.1 - 3.7 LVPW d PLAX 1.00 cm M: 0.6 - 1.2 LVID d PLAX 5.90 cm M: 4.2 - 5.8 LVDs 4.55 cm M: 2.5 - 4.0 LV EF Teichholz 44.5 % FS 22.46 % LV EDV (Teich) 171.4 mL LV ESV (Teich) 95.1 mL M-Mode TAPSE 2.54 cm (M/F) >1.7 Auto EF LV EDV A4C 185.4 mL LV EDV A2C 127.4 mL LV EDV BP 156.8 mL LV ESV A4C 98.3 mL LV ESV A2C 67.3 mL LV ESV BP 81.5 mL LVEF(%) A4C 47.0 % LVEF(%) A2C 47.2 % LVEF(%) BP 48.0 % LV SV A4C 87.1 ml LV SV A2C 60.1 ml LV SV BP 75.2 ml LV CO A4C 6.3 L/min LV CO A2C 4.4 L/min LV CO BP 5.3 L/min HR A4C 71.86 BPM HR A2C 73.03 BPM LV EDV Index (BP) LA Volume LA Length A4C 5.4 cm LA Length A2C 6.2 cm LA Area A4C s 20.68 cm2 LA Area A2C s 26.69 cm2 LA Vol A4C A-L 67.67 mL LA Vol A2C A-L 97.78 mL LA Vol Biplane A-L 87.3 mL LA Vol/BSA A4C A-L LA Vol/BSA A2C A-L LA Vol/BSA BP A-L 38.5 mL/m2 LA Vol A4C MOD 62.5 mL LA Vol A2C MOD 91.3 mL LA Vol BP MOD 80.6 mL LV Diastology MV E' medial 0.103 (>0.07 m/s) MV E Vmax 0.90 (0.4-1.3 m/s) MV E/E' MED 8.76 (<14) MV A Vmax 0.80 (0.4-1.3 m/s) E/A Ratio 1.1 Aortic Valve AoV Vmax 1.37 m/s LVOT Vmax 1.04 m/s AoV Peak Grad 7.5 mmHg LVOT Peak Grad 4.3 mmHg AoV Area (Vmax) 2.57 cm2 LVOT VTI 0.204 m AoV VTI 0.325 m LVOT Mean Grad 2.4 mmHg AoV Mean Errol. 0.98 m/s LVOT SV 69.31 mL AoV Mean Grad 4.3 mmHg LVOT Diam s 2.05 cm AoV Area (VTI) 2.13 cm2 AV Regurg Peak Gr. 7.51 mmHg Velocity Ratio 0.76 Mitral Valve MV DT 194 (160-240 msec) MV Vmax TIPS 1.05 m/s MV Mean Grad 1.9 (<2mmHg) MV VTI 0.287 m Pulmonary Valve PV Vmax 0.93 (0.5-1.5 m/s) RVOT Vmax 0.67 m/s PV Peak Grad 3.5 mmHg RVOT Peak Gr. 1.8 mmHg PV Mean Errol 0.70 m/s RVOT VTI 0.165 m PV Mean Grad 2.1 mmHg RVOT Mean Gr. 1.1 mmHg Tricuspid Valve RA Pressure 3.00 mmHg TR Vmax 2.81 m/s TV S' 0.15 m/s TR Peak Grad 31.6 mmHg RVSP (TR) 34.6 mmHg
[2024-05-17] MEDS: Furosemide 40 MG TAB PO (08:05)
[2024-05-17] MEDS: Rosuvastatin 5 MG TAB PO (08:05)
[2024-05-17] MEDS: Empaglifozin 10 MG TAB PO (08:05)
[2024-05-17] MEDS: Metoprolol CR 100 MG TABCR 200 MG PO (08:06)
[2024-05-17] MEDS: Losartan 25 MG TAB PO (08:06)
[2024-05-17] MEDS: Pantoprazole 40 MG TABCR PO (08:06)
[2024-05-17] MEDS: Normal Saline Flush 10 ML SYR IVP ×2 (08:07→23:58)
--- NOTE | 2024-05-17 09:05 | PDOC.CMIN ---
Date of service: 05/17/24 Time of Service: 09:05 Care Management Initial Assmt Initial Assessment Reason for Hospitalization: anemia Functional Status/Living Situation Patient Presentation: Damien was sitting up in a chair when CM met with him. He appeared tired and stated that he is feeling weak. Damien was admitted with anemia, CHF and atrial fibrillation. He was transfused with 2 units of RBCs and his Hgb went from 7.0 to 8.6. He is also receiving lasix and is diuresing well. Damien talked a lot about his family. He has 2 children, both of whom are educators. 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 Two of his grandchildren also attend that school. Damien shared that one of his sons lives next door and his son (Damien's grandson) has been very helpful this summer. Damien has not been feeling well for a couple of months but worse for the past few weeks. His grandson has taken over mowing the lawn which is 5-6 acres, doing the trimming and weeding. His grandson is a very good student, is active in sports and is involved in many extra-curricular activities. It was clear that Damien is very proud of him and that he is close to his children and grandchildren who offer good support. Town of Residence: [place] Resides with: Spouse ( Chrystal) Significant Other/Family: Local Natural Supports: family Employment Status: Retired (educator) Instrumental Activities of Daily Living (ADLs): Independent Medications Medication Management: No Issues/Barriers identified Advance Directives Advance Directives: Do you have an Advance Directive: Y 11/25/18 02:54 AD On File at [facility]: Y 01/07/13 14:43 Date Asked 05/08/24 05/16/24 13:31 AD Date Reviewed 05/16/23 05/16/23 10:40 COLST On File at [facility] COLST Date Scanned Code Status Resuscitation Status Full Code Portal Pt does not currently have a portal and education provided: No Insurance Coverage/Financial Issues Insurance: BC/BS [facility] Advantage Care Team Visit Care Team Role Provider Type Hamida Ng Primary Care Provider NURSE PRACTITIONER Lori Hunter MD Emergency Provider [facility] STAFF PHYSICIAN Jose Tobin Admit Provider [facility] STAFF PHYSICIAN Attending Provider Discharge Potential Discharge Needs: PCP F/U Appt and Other (cardiology) Anticipated Barriers to Discharge: None Identified Patient/Family Education Needs: Review discharge instructions, discuss Ask Me Three Transportation: Private vehicle Plan: Anticipate Damien will be discharged home when medically stable. He will follow up with his PCP and plan of care and transport with family. CM will follow and continue to assess for discharge needs, PFSH All Active Problems DVT prophylaxis (Acute) Lung infiltrate on CT (Acute) Atrial fibrillation with rapid ventricular response (Acute) Anemia (Chronic) Heart failure with reduced ejection fraction (Acute) Coronary artery disease (Chronic) BPH (benign prostatic hyperplasia) (Chronic) Prediabetes (Acute) CKD (chronic kidney disease) (Chronic) HLD (hyperlipidemia) (Acute) LVH (left ventricular hypertrophy) (Acute) Afib (Chronic) 08/[place] [facility] [place] to NSR [facility] Osteoarthritis (Chronic) Erectile dysfunction (Acute) Obesity (BMI 30-39.9) (Acute) HTN (hypertension) with goal to be determined (Acute) GERD (gastroesophageal reflux disease) (Chronic) Chronic pansinusitis (Acute) JOHN (obstructive sleep apnea) (Chronic) Cigarette nicotine dependence (Acute) Medical History Pulmonary embolism 02/16/23 RH SOB (shortness of breath) History of DVT (deep vein thrombosis) Family History Mother Cancer Son Heart disease cardiomyopathy, heart transplant Brother Heart disease CAD, Cabg Social History (Updated 05/16/24 @ 18:07 by Jose Tobin) Smoking/Tobacco Use Status: Current every day Tobacco Type: cigarettes Smoking packs per day: 0.25 Smoking cigarettes per day: 5.0 Smoking risk assessment performed?: Yes Alcohol Intake: current Alcohol Intake frequency: 0-2 drinks per day Alcohol type: beer Drug use: Never Substance use type: does not use Housing: house Additional Social history: Retired science analyst, 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 SDOH(Care Management) Screening Will the Patient Participate in the Screening?: Yes Do you worry about having a steady place to live?: no Problems where you live: no known problems In the past 12 months, have you had to go without electric, gas, oil or water in your home?: no Have you or anyone in your house had to go without enough food to eat?: no Has lack of transportation kept you from medical appointments or from doing things needed for daily living?: no Has anyone in your support network made you feel unsafe for any reason?: no
[2024-05-17] MEDS: Fluticasone NASAL SPRAY 16 GM BTL NS (09:39)
--- NOTE | 2024-05-17 10:34 | W.PM.PROGNOT ---
Date of Service Date of service: 05/17/24 Time of Service: 10:34 Assessment and Plan Assessment and plan (1) Anemia: Status: Chronic Assessment and plan: -Unclear acuity, but this is likely what is tipping him into symptomatic heart failure. -Assumed blood loss, but no known bleeding and Hb has improved s/p transfusion on admission - He will need EGD colo with acuity depending if he has ongoing blood loss. -s/p 1 unit on admission due to 7.0 hgb given symptoms, possible acute loss, and heart disease. -Holding apixaban and ASA (he got 325 on presentation) but will resume if not getting ongoing blood loss given high risk. Qualifiers: Anemia type: unspecified type Qualified Code(s): D64.9 - Anemia, unspecified (2) Atrial fibrillation with rapid ventricular response: Status: Acute Assessment and plan: -Likely triggered by acute anemia, and has since maintained rate control -He did get diltiazem which brought his rate down initially, but with HFrEF I would like to avoid this. -continue home dose lopressor with additional prn metoprolol pushes for rates >120. A little tachycardia ok with acute anemia. (3) Heart failure with reduced ejection fraction: Status: Acute Assessment and plan: -Triggered by anemia; was not overtly fluid overloaded on presentation in ED. -He did get IV furosemide prior to tranfusion, -continue to monitor fluid status. -updated echocardiogram showed HFmrEF of 48% without other abnormalities -Continue outpatient therapy (4) Cigarette nicotine dependence: Status: Acute Assessment and plan: -encouarged cessation. Qualifiers: Substance use status: uncomplicated Qualified Code(s): F17.210 - Nicotine dependence, cigarettes, uncomplicated (5) Coronary artery disease: Status: Chronic Assessment and plan: -On ASA and statin, not high intensity based on difficulty tolerating. -Continue statin, holding further ASA for now as we watch for blood loss. Qualifiers: Coronary Disease-Associated Artery/Lesion type: alturas artery Sam[place] vs. transplanted heart: alturas heart Associated angina: without angina Qualified Code(s): I25.10 - Atherosclerotic heart disease of alt[place] coronary artery without angina pectoris (6) CKD (chronic kidney disease): Status: Chronic Assessment and plan: -Near baseline. Continue to monitor. Qualifiers: Chronic kidney disease stage: unspecified stage Qualified Code(s): N18.9 - Chronic kidney disease, unspecified (7) Lung infiltrate on CT: Status: Acute Assessment and plan: -seen on recent LDCT screen, but not on CXR. -He does not have pneumonia clinically, no abx for now. (8) DVT prophylaxis: Status: Acute Assessment and plan: -Holding apixaban as above, resume as soon as safe Subjective Subjective Interval history since last seen: Patient states that he is feeling much better this morning as compared to admission. He understands we will monitor him to ensure he remains rate controlled on his current medication regimen and that his Hb remains stable. Exam Narrative Exam Narrative: well appearing older gentleman sitting up on the edge of the bed in no acute distress, AOx4, heart irregularly irregular, rate ~70bpm, lungs CTAB, abdomen soft, non-tender, non-distended Objective Last Vital Signs Temp 98.6 F 05/17/24 08:01 Pulse 80 05/17/24 08:01 Resp 17 05/17/24 08:01 BP 136/69 05/17/24 08:01 Pulse Ox 99 05/17/24 08:01 Laboratory Results - last 24 hr 05/16/24 05/16/24 05/16/24 14:17 15:08 21:05 WBC 7.53 RBC 3.58 L Hgb 7.0 L* 7.9 L Hct 26.6 L 28.8 L MCV 74 L MCH 19.6 L MCHC 26.3 L RDW 18.5 H Plt Count 302 MPV 10.2 Reticulocyte % (Auto) 1.6 Immature Gran % 0.3 Neutrophils % 64.0 Lymphocytes % 25.5 Monocytes % 8.2 Eosinophils % 1.6 Basophils % 0.4 Nucleated RBC % 0.4 H Absolute Neutrophils 4.82 Absolute Lymphocytes 1.92 Absolute Monocytes 0.62 Absolute Eosinophils 0.12 Absolute Basophils 0.03 RBC Morphology See Below Polychromasia Present Poikilocytosis 1+ Anisocytosis 1+ Microcytosis 1+ PT 10.8 INR 1.1 APTT 26.5 Sodium 141 Potassium 4.4 Chloride 108 H Carbon Dioxide 22.4 Anion Gap 10.6 BUN 22 H Creatinine 1.6 H Est GFR (CKD-EPI 2020) 44.93 Glucose 154 H Calcium 8.8 Magnesium 2.1 Iron 11 L TIBC 424 Transferrin % Sat 3 L Ferritin 4 L Total Bilirubin 0.29 AST 11 L ALT 13 L Alkaline Phosphatase 50 Troponin I < 50 NT-Pro-B Natriuret Pep 4297 H Total Protein 6.9 Albumin 3.3 L ABO/Rh O Positive Blood Type Recheck O Positive Antibody Screen NEGATIVE Crossmatch See Detail 05/17/24 05:42 WBC 8.26 RBC 4.00 L Hgb 8.6 L Hct 30.2 L MCV 76 L MCH 21.5 L MCHC 28.5 L D RDW 19.3 H Plt Count 261 MPV 10.9 Reticulocyte % (Auto) Immature Gran % 0.2 Neutrophils % 58.4 Lymphocytes % 29.4 Monocytes % 9.2 Eosinophils % 2.2 Basophils % 0.6 Nucleated RBC % 0.0 Absolute Neutrophils 4.82 Absolute Lymphocytes 2.43 Absolute Monocytes 0.76 Absolute Eosinophils 0.18 Absolute Basophils 0.05 RBC Morphology Polychromasia Poikilocytosis Anisocytosis Microcytosis PT INR APTT Sodium 142 Potassium 4.3 Chloride 107 Carbon Dioxide 24.9 Anion Gap 10.1 BUN 26 H Creatinine 1.7 H Est GFR (CKD-EPI 2020) 41.78 Glucose 120 H Calcium 9.0 Magnesium Iron TIBC Transferrin % Sat Ferritin Total Bilirubin AST ALT Alkaline Phosphatase Troponin I NT-Pro-B Natriuret Pep Total Protein Albumin ABO/Rh Blood Type Recheck Antibody Screen Crossmatch PAWSS Have you Been Recently Intoxicated or Drunk Within the Last 30 days?: No Have you Ever Experienced Previous Episodes of Alcohol Withdrawal?: No Have you ever Experienced Withdrawal Seizures?: No Have you ever Experienced Delirium Tremens(DT)s?: No Have you ever undergone Alcohol Rehabilitation Treatment (i.e, inpt ot outpatient treatment programs)?: No Have you ever Experienced Blackouts?: No Have you ever Combined Alcohol with other Downers within the last 90 days?: No Have you ever Combined Alcohol with any other Substance of Abuse during the last 90 days?: No Positive Blood Alcohol level on Presentation? [PCS.BAL]: No Evidence of Increased Autonomic Activity (i.e. HR>120, tremor, sweating, agitation, nausea)?: No Result: 0 Time Spent with Patient Time Spent with Patient: >50 minutes Time was spent: preparing to see the patient(eg.review tests), obtaining and/or reviewing separately [facility] hiistory, ordering medications,tests, procedures, referring, communicating with other health critical care specialist, indepentently interpreting results, counseling the patient and care coordination
--- NOTE | 2024-05-17 11:18 | PHA.REVIEW2 ---
Pharmacy Admission Review Admission Clinical Review Admission Pharmacy Review: DVT prophylaxis (Acute) Lung infiltrate on CT (Acute) Atrial fibrillation with rapid ventricular response (Acute) Heart failure with reduced ejection fraction (Acute) Cigarette nicotine dependence (Acute) Sulfa (Sulfonamide Antibiotics) Allergy (Severe, Verified 05/16/24 13:38) anaphylaxis sulfamethoxazole (From Bactrim) Allergy (Severe, Verified 05/16/24 13:38) Anaphylaxis trimethoprim (From Bactrim) Allergy (Severe, Verified 05/16/24 13:38) Anaphylaxis ZULLY Inhibitors Adverse Reaction (Intermediate, Verified 05/16/24 13:38) Other (See Comment) Resuscitation Status Full Code Height 5 ft 10 in Weight 110.4 kg Comments Comments/Follow Ups: Hgb increasing, repeat pending for today at 1100. Per morning meeting, monitoring patient to make sure Hgb stabilizes and HR is controlled. Anticipate transfer to [facility]. Pharmacy Admission Review Renal Dosing Renal Dosing: BUN 26 mg/dL (7-18) H 05/17/24 05:42 Creatinine 1.7 mg/dL (0.70-1.30) H 05/17/24 05:42 Medications needing adjustments: Reviewed (CrCl 47.4 mL/min, BUN increased from 22 and SCr increased from 1.6) List of meds needing interventions: Current medications are okay Anticoagulation Anticoagulation: Hgb 8.6 g/dL (13.5-17.5) L 05/17/24 05:42 Hct 30.2 % (40.0-50.0) L 05/17/24 05:42 Plt Count 261 10^3/uL (130-400) 05/17/24 05:42 INR 1.1 (0.9-1.1) 05/16/24 14:17 Creatinine 1.7 mg/dL (0.70-1.30) H 05/17/24 05:42 DVT Prophylaxis: Reviewed (SCDs/TEDs - anemia, HgbL 7 --> 7.9 --> 8.6 with repeat pending) Relevant Labs Relevant Labs: Sodium 142 mmol/L (136-145) 05/17/24 05:42 Potassium 4.3 mmol/L (3.5-5.1) 05/17/24 05:42 Chloride 107 mmol/L (98-107) 05/17/24 05:42 Magnesium 2.1 mg/dL (1.8-2.4) 05/16/24 14:17 Electrolytes, C-Reactive P, ESR: Reviewed (glucose 120) Cardiac Review Cardiac Review: Troponin I < 50 ng/L (< or =60) 05/16/24 14:17 NT-Pro-B Natriuret Pep 4297 pg/mL (<300) H 05/16/24 14:17 BP, HR, EF%: Reviewed (HR and BP WNL) QTc Review QTc: Reviewed (458 from 05/16/24) IV to PO Switch IV Medications: Reviewed (PRN metoprolol for HR > 110 at rest) Home Meds Home Med List reviewed: Reviewed Relevent Home Meds Not ordered & why?: Eliquis (on hold per H+P), aspirin (on hold per H+P), ibuprofen (PRN), sildenafil (PRN), triamcinolone dental paste (PRN) Current Meds Current Medication Order Review: Intervened Comments: Added IV admission order set Comments Comments/Follow Ups: Hgb increasing, repeat pending for today at 1100. Per morning meeting, monitoring patient to make sure Hgb stabilizes and HR is controlled. Anticipate transfer to [place] today.
--- NOTE | 2024-05-17 15:12 | RESPIRATORY ---
05/17/2024 DME: Jamie Home Unit: Dreamstation CPAP 16-19 O2: None
--- NOTE | 2024-05-17 17:01 | CHAPLAIN ---
Damien was resting in bed when I visited. 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 His PCP told him to come to [facility] ED the next day. Damien said he is losing blood from somewhere and had a transfusion. 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 His son, daughter in law and grandchildren live next door and his daughter lives in [place] with her family. Damien seems to be well supported by his , children and grandchildren. He was [place]ized in [place] a kid, but has not been connect to a lety community in recent years. He knew last garbage collector driver at [facility], he said, and had a few conversations with him but nothing of substance. I will continue to visit.
[2024-05-17 18:16] LABS: HCT 31.3 % (40.0-50.0); HGB 8.8 g/dL (13.5-17.5)
[2024-05-18] VITALS (7 sets, daily range): BP systolic 96–122; BP diastolic 54–67; PULSE 62–79; RESP 18–29; TEMP 36.6–37.2; O2SAT 94–98
--- NOTE | 2024-05-18 00:22 | W.PC.ACHO ---
Registration Status: Primary Language: Preferred Language: ED Information & Data Chief Complaint SOB 05/16/24 15:24 Triage Note Pt sent by PCP due to 05/16/24 13:33 worsening sx after recent viral illness. Pt is having increased SOB, CP, dizziness and low BP (per pt). Hx of PE and AFIB Subjective SILVA 05/16/24 14:11 Medical / Surgical History (Last Reviewed 05/16/24 @ 18:05 by Jose Tobin) Pulmonary embolism SOB (shortness of breath) History of DVT (deep vein thrombosis) Most Recent Vital Signs Temperature 37.0 C 05/17/24 08:01 Temperature Source Temporal Artery Scan 05/17/24 09:25 Pulse 62 05/17/24 22:01 Pulse Rhythm Regular 05/17/24 20:00 Pulse 82 05/17/24 22:01 Respiratory Rate 22 05/17/24 22:01 Respiratory Effort Normal, Non-Labored 05/17/24 20:00 Respiratory Depth Normal 05/17/24 20:00 Respiratory Pattern Normal 05/17/24 20:00 Blood Pressure 110/54 L 05/17/24 22:01 Blood Pressure Mean 71 05/17/24 22:01 Blood Pressure Position Sitting 05/17/24 09:25 Pulse Oximetry 97 05/17/24 22:01 Oxygen Delivery Method Room Air 05/17/24 09:25 Oxygen Flow Rate 0 05/17/24 09:25 Fraction of Inspired Oxygen (FIO2) 30 05/17/24 04:39 Pain Level 0 05/17/24 09:25 Allergies Sulfa (Sulfonamide Antibiotics) Allergy (Severe, Verified 05/16/24 13:38) anaphylaxis sulfamethoxazole (From Bactrim) Allergy (Severe, Verified 05/16/24 13:38) Anaphylaxis trimethoprim (From Bactrim) Allergy (Severe, Verified 05/16/24 13:38) Anaphylaxis ZULLY Inhibitors Adverse Reaction (Intermediate, Verified 05/16/24 13:38) Other (See Comment) Cough Precautions Isolation Standard precaution 05/16/24 14:11 Active Medications Generic Name Dose Route Start Last Admin Trade Name Freq PRN Reason Stop Dose Admin Acetaminophen 1,000 mg 05/16/24 23:26 05/17/24 19:52 Acetaminophen 500 Mg Tab PO 1,000 mg Q8H PRN PRN Administration Benzonatate 100 mg 05/16/24 23:45 05/17/24 19:53 Benzonatate 100 Mg Cap PO 100 mg TID SYDNEE Administration Empagliflozin 10 mg 05/17/24 08:30 05/17/24 08:05 Empaglifozin 10 Mg Tab PO 10 mg DAILY SYDNEE Administration Fluticasone Propionate 0 gm 05/17/24 08:30 05/17/24 09:39 Fluticasone Nasal [place] 16 Gm Btl NS 2 pump DAILY SYDNEE Administration Furosemide 40 mg 05/17/24 08:30 05/17/24 08:05 Furosemide 40 Mg Tab PO 40 mg DAILY SYDNEE Administration Losartan Potassium 25 mg 05/17/24 08:30 05/17/24 08:06 Losartan 25 Mg Tab PO 25 mg DAILY SYDNEE Administration Metoprolol Succinate 200 mg 05/17/24 08:30 05/17/24 08:06 Metoprolol Cr 100 Mg Tabcr PO 200 mg DAILY SYDNEE Administration Pantoprazole Sodium 40 mg 05/17/24 07:30 05/17/24 08:06 Pantoprazole 40 Mg Tabcr PO 40 mg DAILY@0730 SYDNEE Administration Rosuvastatin Calcium 5 mg 05/17/24 08:30 05/17/24 08:05 Rosuvastatin 5 Mg Tab PO 5 mg DAILY SYDNEE Administration Sodium Chloride 0 ml 05/16/24 13:59 05/16/24 20:40 Normal Saline Flush 10 Ml Syr IVP 30 ml PRN PRN Administration Sodium Chloride 0 ml 05/16/24 20:00 05/17/24 23:58 Normal Saline Flush 10 Ml Syr IVP 10 ml BID SYDNEE Administration IV IV Catheter Type [Right Saline Lock Forearm] IV Catheter Gauge [Right 20 Forearm] Diagnostics 05/18/24 05/17/24 05/17/24 Range/Units 05:35 18:06 05:42 WBC Pending 8.26 (4.4-10.8) 10^3/uL RBC Pending 4.00 L (4.36-5.78) 10^6/uL Hgb Pending 8.8 L 8.6 L (13.5-17.5) g/dL Hct Pending 31.3 L 30.2 L (40.0-50.0) % MCV Pending 76 L (80-95) fL MCH Pending 21.5 L (27.0-33.0) pg MCHC Pending 28.5 L D (32.0-36.0) % RDW Pending 19.3 H (11.8-14.1) % Plt Count Pending 261 (130-400) 10^3/uL MPV Pending 10.9 (8.0-11.0) fL Immature Gran % 0.2 % Neutrophils % 58.4 % Lymphocytes % 29.4 % Monocytes % 9.2 % Eosinophils % 2.2 % Basophils % 0.6 % Nucleated RBC % 0.0 (0.0-0.3) % Absolute Neutrophils 4.82 (1.2-6.7) 10^3/uL Absolute Lymphocytes 2.43 (1.2-3.4) 10^3/uL Absolute Monocytes 0.76 (0.1-0.8) 10^3/uL Absolute Eosinophils 0.18 (0.0-0.7) 10^3/uL Absolute Basophils 0.05 (0.0-0.2) 10^3/uL Sodium Pending 142 (136-145) mmol/L Potassium Pending 4.3 (3.5-5.1) mmol/L Chloride Pending 107 (98-107) mmol/L Carbon Dioxide Pending 24.9 (21.0-32.0) mmol/L Anion Gap Pending 10.1 (3-11) mmol/L BUN Pending 26 H (7-18) mg/dL Creatinine Pending 1.7 H (0.70-1.30) mg/dL Est GFR (CKD-EPI 2020) Pending 41.78 (mL/min/1.73m2) Glucose Pending 120 H (74-106) mg/dL Calcium Pending 9.0 (8.5-10.1) mg/dL Crossmatch 05/16/24 Range/Units 15:08 WBC (4.4-10.8) 10^3/uL RBC (4.36-5.78) 10^6/uL Hgb (13.5-17.5) g/dL Hct (40.0-50.0) % MCV (80-95) fL MCH (27.0-33.0) pg MCHC (32.0-36.0) % RDW (11.8-14.1) % Plt Count (130-400) 10^3/uL MPV (8.0-11.0) fL Immature Gran % % Neutrophils % % Lymphocytes % % Monocytes % % Eosinophils % % Basophils % % Nucleated RBC % (0.0-0.3) % Absolute Neutrophils (1.2-6.7) 10^3/uL Absolute Lymphocytes (1.2-3.4) 10^3/uL Absolute Monocytes (0.1-0.8) 10^3/uL Absolute Eosinophils (0.0-0.7) 10^3/uL Absolute Basophils (0.0-0.2) 10^3/uL Sodium (136-145) mmol/L Potassium (3.5-5.1) mmol/L Chloride (98-107) mmol/L Carbon Dioxide (21.0-32.0) mmol/L Anion Gap (3-11) mmol/L BUN (7-18) mg/dL Creatinine (0.70-1.30) mg/dL Est GFR (CKD-EPI 2020) (mL/min/1.73m2) Glucose (74-106) mg/dL Calcium (8.5-10.1) mg/dL Crossmatch See Detail [id number] Documentation Fingerstick Glucose Start: 05/16/24 19:53 Freq: Status: Inactive Protocol: Activity Type Activity Date Activity User E-sign Co-sign Detail Recorded Client Recorded Date Recorded By Document 05/16/24 19:52 BKG DAMELANIEON(3) [id number] 05/16/24 19:53 BKG DAEMON(4) Intake and Output - 24 Hour Total 05/16/24 13:31 thru 05/17/24 22:34 Intake Total 2210 Output Total 5230 Balance -3020 Weight 110.4 kg Intake: IV 10 Oral 1500 Blood Product 600 Rbc Leuko Reduced Unit 300 [id number] Rbc Leuko Reduced Unit 300 [id number] Other 100 Rbc Leuko Reduced Unit 50 [id number] Rbc Leuko Reduced Unit 50 [id number] Output: Urine 5230 Other: Urine Color Yellow Urine Appearance Clear Urine Odor Normal Comment 40mg PO Lasix this morning Voiding Methods Urinal Falls Risk Assessment History of Falls No History 05/16/24 18:45 Contributing Factors Unstable,Incontinence 05/16/24 18:45 Ambulatory Aids Independent 05/16/24 18:45 Tubes/Lines With any additional score 05/16/24 18:45 Gait Evaluation No gait disturbance 05/16/24 18:45 Cognition No cognitive impairment 05/16/24 18:45 Fall Total Score 26 05/16/24 18:45 Level of Risk Moderate Risk 05/16/24 18:45 Problems DVT prophylaxis (Acute) Lung infiltrate on CT (Acute) Atrial fibrillation with rapid ventricular response (Acute) Anemia (Chronic) Heart failure with reduced ejection fraction (Acute) Coronary artery disease (Chronic) CKD (chronic kidney disease) (Chronic) Cigarette nicotine dependence (Acute) Notes 05/17/24 15:12 Respiratory by Magalys Dumont 05/17/2024 DME: [facility] Unit: [facility] CPAP 16-19 O2: None Initialized on 05/17/24 15:12 - END OF NOTE v v v v v v v v v Sending and/or Receiving Nurses: Please use comment section below to note any information pertinent to the patient hand-off not included above. Information / Comments: Report received from: Jef BRANNON
[2024-05-18 06:55] LABS: HCT 28.7 % (40.0-50.0); HGB 8.3 g/dL (13.5-17.5); MCH 21.4 pg (27.0-33.0); MCHC 28.9 % (32.0-36.0); MCV 74 fL (80-95); Platelet Count 254 10^3/uL (130-400); RDW 19.6 % (11.8-14.1); RDW-SD 51.7 fL; WBC 7.54 10^3/uL (4.4-10.8)
[2024-05-18 07:17] LABS: Anion Gap 9.3 mmol/L (3-11); BUN 24 mg/dL (7-18); CO2 25.7 mmol/L (21.0-32.0); CREATININE 1.5 mg/dL (0.70-1.30); Calcium 8.6 mg/dL (8.5-10.1); Chloride 104 mmol/L (98-107); Estimated GFR 48.55 (mL/min/1.73m2); Glucose 119 mg/dL (74-106); Potassium 4.4 mmol/L (3.5-5.1); Sodium 139 mmol/L (136-145)
[2024-05-18] MEDS: Furosemide 40 MG TAB PO (07:41)
[2024-05-18] MEDS: Pantoprazole 40 MG TABCR PO (07:42)
[2024-05-18] MEDS: Metoprolol CR 100 MG TABCR 200 MG PO (07:42)
[2024-05-18] MEDS: Benzonatate 100 MG CAP PO ×2 (07:44→14:01)
[2024-05-18] MEDS: Losartan 25 MG TAB PO (07:44)
[2024-05-18] MEDS: Rosuvastatin 5 MG TAB PO (07:44)
[2024-05-18] MEDS: Empaglifozin 10 MG TAB PO (07:44)
[2024-05-18] MEDS: Normal Saline Flush 10 ML SYR IVP (07:45)
[2024-05-18 07:55] LABS: RBC 3.88 10^6/uL (4.36-5.78)
[2024-05-18] MEDS: Acetaminophen 500 MG TAB 1000 MG PO (08:34)
[2024-05-18] MEDS: Fluticasone NASAL SPRAY 16 GM BTL NS (08:35)
[2024-05-18] MEDS: Polyethylene Glycol 3350 17 GM PACKET PO (11:14)
[2024-05-18 12:31] LABS: HCT 32.8 % (40.0-50.0); HGB 9.2 g/dL (13.5-17.5)
--- NOTE | 2024-05-18 12:49 | PDOC.CMPRO ---
Date of service: 05/18/24 Time of Service: 12:49 Care Management Progress Note Discharge Potential Discharge Needs: PCP F/U Appt Anticipated Barriers to Discharge: None Identified Patient/Family Education Needs: Review discharge instructions, discuss Ask Me Three Transportation: Private vehicle Plan: Anticipate Damien will be discharged home when medically stable. He will follow up with his PCP and plan of care and transport with family. CM will follow and continue to assess for discharge needs. SDOH(Care Management) Screening Will the Patient Participate in the Screening?: Yes Do you worry about having a steady place to live?: no Problems where you live: no known problems In the past 12 months, have you had to go without electric, gas, oil or water in your home?: no Have you or anyone in your house had to go without enough food to eat?: no Has lack of transportation kept you from medical appointments or from doing things needed for daily living?: no Has anyone in your support network made you feel unsafe for any reason?: no
--- NOTE | 2024-05-18 14:45 | CHAPLAIN ---
Damien was moved out to Med/Surg last night, he said at 12:30 a.m. His Chrystal was visiting when I stopped in. Damien said he doesn't yet have a clear sense of what he's dealing with, but his numbers are better today. 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 He lives in [place] with his . His son and his family live next door. A daughter lives in [place]. Damien is well supported by family.
--- NOTE | 2024-05-18 14:50 | DSE_ITS ---
Date of service: 05/18/24 Time of Service: 15:30 DS: Diagnosis Discharge Diagnosis (1) Anemia: Status: Chronic Asessment and Plan: -due to iron deficiency, and likely combination of CKD as well -patient without signs or source of bleeding -responded to transfusion of 1U PRBCs -will be discharged home with supplemtal Iron -rec f/u CBC and iron studies as outpatient (2) Atrial fibrillation with rapid ventricular response: Status: Acute Asessment and Plan: -resolved after transfusion -continue home toprol-XL (3) Heart failure with reduced ejection fraction: Status: Acute Asessment and Plan: -HFmrEF with EF 48% -continue home regimen at this time (4) Cigarette nicotine dependence: Status: Acute (5) Coronary artery disease: Status: Chronic (6) CKD (chronic kidney disease): Status: Chronic (7) Lung infiltrate on CT: Status: Acute Asessment and Plan: -Lung RADS Cat 1: rec annual screening chest CT in 12 months Discharge Plan Disposition Patient Disposition: Home Condition: Good Discharge Details Reason For Visit: Anemia,atrial fibrillation with RVR, HFrEF Admit Date/Time: 05/16/24 17:44 Admit Provider: Jose Tobin Attending Provider: Jose Tobin Primary Care Provider: [facility] Hospital Course Hospital Course: Patient initially presented with exertional dyspnea that was found to be secondary to a combination of anemia, A-fib with RVR, and acute exacerbation of HFmrEF. Patient was appropriately diuresed, received 1 unit of PRBCs for anemia, which at this time appears to be chronic in nature, and resolution of his A-fib RVR with appropriate rate control on home Toprol XL. Anemia was secondary to iron deficiency and he will be discharged with supplemental iron. His hemoglobin remained stable after transfusion, he transitioned well to oral diuretic, and was ultimately determined to be stable for discharge home. Home Meds and New Rx's Prescriptions: New ferrous sulfate [iron] 325 mg (65 mg iron) tablet 325 mg PO BID Qty: 90 0RF Continued furosemide 40 mg tablet 40 mg PO DAILY Qty: 90 3RF ibuprofen [Advil] 200 mg tablet 200 mg PO Q6H PRN sildenafil [Viagra] 100 mg tablet 100 mg PO DAILY PRN Rx Instructions: administer 30 minutes to 4 hours before activity levalbuterol tartrate [Xopenex HFA] 45 mcg/actuation HFA aerosol inhaler 2 inh inhalation Q4H PRN Eliquis 5 mg tablet 5 mg PO BID Qty: 180 3RF Jardiance 10 mg tablet 10 mg PO DAILY fluticasone propionate 50 mcg/actuation spray,suspension 2 spray intranasal DAILY Rx Instructions: administer into each nostril metoprolol succinate 200 MG tablet extended release 24 hr 200 mg PO DAILY acetaminophen [Tylenol Ex Str Arthritis Pain] 500 MG tablet 1,300 mg PO BID triamcinolone acetonide 5 GM paste 5 g Dental DAILY PRN pantoprazole [Protonix] 40 MG tablet,delayed release (DR/EC) 40 mg PO DAILY rosuvastatin [Crestor] 5 MG tablet 5 mg PO DAILY losartan [Cozaar] 25 mg tablet 25 mg PO DAILY aspirin [Adult Low Dose Aspirin] 81 mg tablet,delayed release (DR/EC) 81 mg PO DAILY Discharge Instructions Instructions: Atrial Fibrillation (DC), Heart failure with reduced ejection fraction Stand Alone Forms: Nursing Discharge Form Activity:: Activity as Tolerated Equipment/Supplies:: No Equipment Needed Diet:: As Tolerated Discharge Orders Discharge Orders: Discharge Order (Routine); Ordered 05/18/24 Ordered By: Ricky [place] DS: Summary Time Spent with Patient providing and/or coordinating discharge services: Greater than 30 minutes Status at Discharge Functional status at discharge: independent ambulation Overall status at discharge: patient is back to baseline Mental Status: mental status grossly normal Speech and Movement: speech and movement normal Mood: congruent mood Affect: normal affect Quality:SDOH Health Related Social Needs: No Data to Display Exam Narrative Exam Narrative: well appearing older gentleman sitting up on the edge of the bed in no acute distress, AOx4, heart irregularly irregular, rate ~70bpm, lungs CTAB, abdomen soft, non-tender, non-distended Psych Mental Status: mental status grossly normal Speech and Movement: speech and movement normal Mood: congruent mood Affect: normal affect DS: Data Vitals/I&O Vitals and I&O: Vital Signs Temperature 97.9 F 05/18/24 11:19 Temperature Source Temporal Artery Scan 05/18/24 11:19 Pulse 66 05/18/24 11:19 Pulse Rhythm Regular 05/18/24 11:17 Pulse 72 05/18/24 00:01 Respiratory Rate 18 05/18/24 11:19 Respiratory Effort Normal, Non-Labored 05/18/24 11:17 Respiratory Depth Normal 05/18/24 11:17 Respiratory Pattern Normal 05/18/24 11:17 Blood Pressure 118/58 L 05/18/24 11:50 Blood Pressure Mean 83 05/18/24 00:01 Blood Pressure Position Sitting 05/17/24 09:25 Pulse Oximetry 97 05/18/24 11:19 Oxygen Delivery Method Room Air 05/18/24 11:19 Oxygen Flow Rate 0 05/18/24 11:19 Fraction of Inspired Oxygen (FIO2) 30 05/17/24 04:39 Pain Level 0 05/18/24 07:15 Comment RN informed of BP 05/18/24 11:19 Intake & Output 05/17/24 05/18/24 05/18/24 17:59 05:59 17:59 Intake Total 1210 / 1210 240 / 240 Output Total 1880 / 1880 1150 / 3030 700 / 700 Balance -670 / -670 -1150 / -1820 -460 / -460 Weight 247 lb 9.266 oz Intake: IV Oral 1200 / 1200 240 / 240 Output: Urine 1880 / 1880 1150 / 3030 700 / 700 Other: Urine Color Yellow Yellow Yellow Urine Appearance Clear Clear Clear Urine Odor Normal None Comment 40mg PO Lasix this morning Voiding Methods Urinal Urinal Toilet Data Completed and Pending Labs on day of discharge: Labs from last 24 hours 05/18/24 05/18/24 05/17/24 12:20 06:20 18:06 WBC 7.54 RBC 3.88 L Hgb 9.2 L 8.3 L 8.8 L Hct 32.8 L 28.7 L 31.3 L MCV 74 L MCH 21.4 L MCHC 28.9 L RDW 19.6 H Plt Count 254 MPV 11.0 Sodium 139 Potassium 4.4 Chloride 104 Carbon Dioxide 25.7 Anion Gap 9.3 BUN 24 H Creatinine 1.5 H Est GFR (CKD-EPI 2020) 48.55 Glucose 119 H Calcium 8.6 PFSH All Active Problems DVT prophylaxis (Acute) Lung infiltrate on CT (Acute) Atrial fibrillation with rapid ventricular response (Acute) Anemia (Chronic) Heart failure with reduced ejection fraction (Acute) Coronary artery disease (Chronic) BPH (benign prostatic hyperplasia) (Chronic) Prediabetes (Acute) CKD (chronic kidney disease) (Chronic) HLD (hyperlipidemia) (Acute) LVH (left ventricular hypertrophy) (Acute) Afib (Chronic) 08/30/23 cardioversion at [facility] 08/24/23 successful to NSR RH Osteoarthritis (Chronic) Erectile dysfunction (Acute) Obesity (BMI 30-39.9) (Acute) HTN (hypertension) with goal to be determined (Acute) GERD (gastroesophageal reflux disease) (Chronic) Chronic pansinusitis (Acute) JOHN (obstructive sleep apnea) (Chronic) Cigarette nicotine dependence (Acute) Medical History Pulmonary embolism 02/16/23 RH SOB (shortness of breath) History of DVT (deep vein thrombosis) Family History Mother Cancer Son Heart disease cardiomyopathy, heart transplant Brother Heart disease CAD, Cabg Social History (Updated 05/16/24 @ 18:07 by Jose Tobin) Smoking/Tobacco Use Status: Current every day Tobacco Type: cigarettes Smoking packs per day: 0.25 Smoking cigarettes per day: 5.0 Smoking risk assessment performed?: Yes Alcohol Intake: current Alcohol Intake frequency: 0-2 drinks per day Alcohol type: beer Drug use: Never Substance use type: does not use Housing: house Additional Social history: Retired special education science teacher, 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 Time Spent with Patient Time Spent with Patient: <45 minutes Time was spent: preparing to see the patient(eg.review tests), obtaining and/or reviewing separately otained hiistory, ordering medications,tests, procedures, referring, communicating with other health career development coordinator, indepentently interpreting results, counseling the patient and care coordination
--- NOTE | 2024-05-18 18:01 | PDOC.CMDIS ---
Date of service: 05/18/24 Time of Service: 19:04 LACE Index Scoring Tool Questions: Length of Stay (in days): 2 Was the patient admitted via the E.D.?: Yes Comorbidities: Liver or Renal Disease E.D. Visits: 0 Answers: Total Score: 10 Risk of Readmission: High Risk Care Management Discharge Plan Reason for Hospitalization: Anemia, Afib with RVR Discharge Plan: Damien returned home today with no new services. He was transported home via private vehicle by family. He will follow up with his PCP and discharge plan of care. Patient/Family Education Needs: Review discharge instructions and limitations, discussion of self care needs including ask me three. SDOH Health Related Social Needs: No Data to Display
== END 2024-05-18 15:55 | disposition home or self-care (01) | DRG 811 ==
LOC: ER 18:43 → ICU 18:45 → MS 05-18 00:35
PROVIDERS: Family Medicine; Admitting Provider Family Medicine; Emergency Provider Emergency Medicine; PCP Nurse Practitioner; Visit Provider Family Medicine
DX: D50.9 Iron deficiency anemia, unspecified (principal); I50.21 Acute systolic (congestive) heart failure; I48.91 Unspecified atrial fibrillation; I25.10 Atherosclerotic heart disease of native coronary artery without angina pectoris; F17.210 Nicotine dependence, cigarettes, uncomplicated; R91.8 Other nonspecific abnormal finding of lung field; N18.30 Chronic kidney disease, stage 3 unspecified; G47.33 Obstructive sleep apnea (adult) (pediatric); Z79.01 Long term (current) use of anticoagulants; N40.0 Benign prostatic hyperplasia without lower urinary tract symptoms; R73.03 Prediabetes; E78.5 Hyperlipidemia, unspecified; E66.9 Obesity, unspecified; K21.9 Gastro-esophageal reflux disease without esophagitis; J32.4 Chronic pansinusitis; Z86.718 Personal history of other venous thrombosis and embolism; Z86.711 Personal history of pulmonary embolism; Z68.35 Body mass index [BMI] 35.0-35.9, adult
CPT/HCPCS: 00123; 36410; 36415; 36430; 80048; 80053; 85027; 86850; 86900; 86901; 86920; 93005; 93306; 96374; 96375; 99291; 71045; 82728; 83540; 83550; 83735; 83880; 84484; 85014; 85018; 85025; 85045; 85610; 85730; 93010; 94660; 99223; 99233; 99238; J1940; J3490; P9016

== ENCOUNTER → 2024-08-06 08:52 | Outpatient (BNVA) | payer MEDICARE, SELFPAY | PROVIDERS: PCP Nurse Practitioner; Referring Provider Nurse Practitioner; Visit Provider Nurse Practitioner Gerontology | DX: N40.1 Benign prostatic hyperplasia with lower urinary tract symptoms (principal); R35.1 Nocturia; R39.16 Straining to void; R39.12 Poor urinary stream; R97.20 Elevated prostate specific antigen [PSA] | CPT/HCPCS: 51798; 81003; 99215 ==

== ENCOUNTER 2024-08-06 11:23 | Outpatient (CLI) | payer MEDICARE, SELFPAY ==
[2024-08-06 19:05] LABS: PSA, Diagnostic 4.2 ng/mL (<=6.5)
== END 2024-08-06 11:24 | disposition home or self-care (01) ==
LOC: LBO 11:23
PROVIDERS: PCP Nurse Practitioner; Visit Provider Nurse Practitioner Gerontology
DX: N40.0 Benign prostatic hyperplasia without lower urinary tract symptoms (principal); R97.20 Elevated prostate specific antigen [PSA]
CPT/HCPCS: 36415; 84153

== ENCOUNTER 2025-01-30 02:03 | Outpatient (CLI) | payer MEDICARE, SELFPAY ==
[2025-01-30 18:54] LABS: PSA, Diagnostic 4.2 ng/mL (<=6.5)
== END 2025-01-30 02:04 | disposition home or self-care (01) ==
LOC: LBO 02:03
PROVIDERS: PCP Nurse Practitioner; Visit Provider Nurse Practitioner Gerontology
DX: R97.20 Elevated prostate specific antigen [PSA] (principal)
CPT/HCPCS: 36415; 84153

== ENCOUNTER → 2025-02-06 10:05 | Outpatient (BNVA) | payer MEDICARE, SELFPAY | PROVIDERS: PCP Nurse Practitioner; Referring Provider Nurse Practitioner; Visit Provider Nurse Practitioner Gerontology | DX: N40.0 Benign prostatic hyperplasia without lower urinary tract symptoms (principal); R97.20 Elevated prostate specific antigen [PSA] | CPT/HCPCS: 99214 ==

== ENCOUNTER 2025-06-21 02:21 | Outpatient (CLI) | payer MEDICARE, SELFPAY ==
--- NOTE | 2025-06-21 09:30 | DI.US_ITS ---
APPROVED REPORT EXAM: Comprehensive 2D, Doppler, and color-flow Echocardiogram Patient Location: Out-Patient Seconds Grader: Gary Connors RDCS (AE) Indications: HFrEF, precardioversion Other Information Study Quality: Adequate Conclusion Mildly dilated left ventricle. Normal left ventricular wall thickness. Ejection fraction is 35 to 40% with global hypokinesis Normal right ventricular size and function Both atria are severely enlarged Aortic valve is sclerotic and trileaflet without stenosis or regurgitation Mild mitral annular calcification. Mild central mitral regurgitation Mild tricuspid regurgitation with an estimated right ventricular systolic pressure of 38 mmHg Wall motion Left Ventricle Left ventricle is mildly dilated. Left ventricular systolic function is mildly decreased. There is normal left ventricular wall thickness. There is global hypokinesis of the left ventricle. There is no ventricular septal defect visualized. LVEF is 35-40%. Right Ventricle The right ventricle is normal size. Right ventricular systolic function is grossly normal. Atria Left atrium is severely dilated. Right atrium is severely dilated. The interatrial septum is intact with no evidence for an atrial septal defect. Aortic Valve The aortic valve is sclerotic. Aortic valve is trileaflet. There is no aortic valvular stenosis. No aortic regurgitation is present. Mitral Valve Mild mitral annular calcification. No evidence of mitral valve stenosis. Mild mitral regurgitation. Tricuspid Valve The tricuspid valve is normal in structure. There is no tricuspid valve stenosis. Mild tricuspid regurgitation. The RVSP is 38.3 mmHg. Pulmonic Valve The pulmonary valve is normal in structure. There is no pulmonic valvular stenosis. There is no pulmonic valvular regurgitation. Great Vessels The aortic root is normal in size. Ascending aorta is not well visualized. IVC is normal in size and collapses >50% with inspiration. Pericardium There is no pericardial effusion. 2D Dimensions IVSD d PLAX 0.88 cm M: 0.6-1.2 Ao Root d 2.85 cm M: 3.1 - 3.7 LVPW d PLAX 0.88 cm M: 0.6 - 1.2 LVID d PLAX 6.35 cm M: 4.2 - 5.8 LVDs 5.10 cm M: 2.5 - 4.0 LV EF Teichholz 39.5 % FS 19.67 % LV EDV (Teich) 204.7 mL LV ESV (Teich) 123.8 mL Stroke Vol Index (Teich) 35.81 M-Mode TAPSE 1.98 cm (M/F) >1.7 Auto EF LV EDV A4C 128.9 mL LV EDV A2C 153.9 mL LV EDV BP 142.3 mL LV ESV A4C 77.5 mL LV ESV A2C 95.5 mL LV ESV BP 86.0 mL LVEF(%) A4C 39.9 % LVEF(%) A2C 37.9 % LVEF(%) BP 39.6 % LV SV A4C 51.4 ml LV SV A2C 58.4 ml LV SV BP 56.3 ml LV CO A4C 5.0 L/min LV CO A2C 7.1 L/min LV CO BP 6.1 L/min HR A4C 98.10 BPM HR A2C 122.05 BPM LV EDV Index (BP) LA Volume LA Length A4C 6.7 cm LA Length A2C 7.2 cm LA Area A4C s 26.41 cm2 LA Area A2C s 28.54 cm2 LA Vol A4C A-L 88.06 mL LA Vol A2C A-L 95.91 mL LA Vol Biplane A-L 95.2 mL LA Vol/BSA A4C A-L LA Vol/BSA A2C A-L LA Vol/BSA BP A-L 42.1 mL/m2 LA Vol A4C MOD 83.6 mL LA Vol A2C MOD 93.3 mL LA Vol BP MOD 90.7 mL RA Volume RA Area A4C 21.0 cm2 RA ESV A4C (A-L) 56.8mL RA Vol/BSA A4C A-L RA Length A4C 6.6 cm RA ESV A4C (MOD) 52.1mL LV Diastology MV E' medial 0.069 (>0.07 m/s) MV E Vmax 0.81 (0.4-1.3 m/s) MV E/E' MED 11.73 (<14) MV E' lateral 0.101 (>0.1 m/s) MV E/E' LAT 8.04 (<14) MV E' Average 0.085 m/s MV E/E'(average) 9.54 Aortic Valve AoV Vmax 1.46 m/s LVOT Vmax 1.08 m/s AoV Peak Grad 8.6 mmHg LVOT Peak Grad 4.6 mmHg AoV Area (Vmax) 2.41 cm2 LVOT VTI 0.187 m AoV VTI 0.259 m LVOT Mean Grad 2.5 mmHg AoV Mean Errol. 1.12 m/s LVOT SV 61.43 mL AoV Mean Grad 5.4 mmHg LVOT Diam s 2.00 cm AoV Area (VTI) 2.38 cm2 AV Regurg Peak Gr. 8.56 mmHg Velocity Ratio 0.74 Mitral Valve MV DT 194 (160-240 msec) MV Vmax TIPS 0.84 m/s MV Mean Grad 1.6 (<2mmHg) MV VTI 0.195 m Pulmonary Valve PV Vmax 0.75 (0.5-1.5 m/s) RVOT Vmax 0.44 m/s PV Peak Grad 2.2 mmHg RVOT Peak Gr. 0.8 mmHg PV Mean Errol 0.52 m/s RVOT VTI 0.073 m PV Mean Grad 1.2 mmHg RVOT Mean Gr. 0.4 mmHg Tricuspid Valve RA Pressure 3.00 mmHg TR Vmax 2.97 m/s TR Peak Grad 35.3 mmHg RVSP (TR) 38.3 mmHg
== END 2025-06-21 02:41 ==
LOC: DI 02:21
PROVIDERS: PCP Nurse Practitioner; Visit Provider Physician Assistant
DX: I50.20 Unspecified systolic (congestive) heart failure (principal); I08.3 Combined rheumatic disorders of mitral, aortic and tricuspid valves
CPT/HCPCS: 93306